=== PATIENT | female | born 1945 | race Caucasian/White ===

== ENCOUNTER 2020-03-24 01:26 | Day surgery (SDC) | payer OTHER, SELFPAY ==
[2020-03-08 15:27] VITALS: BMI 31.2
[2020-03-24 06:52] VITALS: BP 142/101; PULSE 61; RESP 18; TEMP 36.6; O2SAT 94
[2020-03-24] MEDS: LACTATED RINGERS 1,000 ML 150 ML IV CONT (07:08)
--- NOTE | 2020-03-24 07:08 | WPDANESEPPF ---
Anes - Initial Pre Proc Eval Procedure: Operation Date: 03/24/20 08:00 Proposed Procedures p Colonoscopy - Gregorio Nguyễn MD Date/Time: 03/24/20 07:08 Surgeon: Gregorio Nguyễn MD Pre Op Diagnosis: Positive Fecal Occult Patient Data Age: 74 Gender: F Height: 1.6 m Weight: 79.3 kg Last Vital Signs Temp 36.6 C 03/24/20 06:52 Pulse 61 03/24/20 06:52 Resp 18 03/24/20 06:52 BP 142/101 H 03/24/20 06:52 Pulse Ox 94 03/24/20 06:52 Allergies Allergy/AdvReac Type Severity Reaction Status Date / Time No Known Allergies Allergy Verified 03/24/20 06:51 Home Medications Medication Instructions Recorded Confirmed Type aspirin 81 mg tablet,delayed 81 mg PO DAILY 12/23/18 03/24/20 History release atorvastatin 20 mg tablet 40 mg PO HS 12/23/18 03/24/20 History blood sugar diagnostic #10 each 12/23/18 03/24/20 History calcium carbonate-vitamin D3 500 1 tablet PO DAILY 12/23/18 03/24/20 History mg(1,250 mg)-600 unit chewable tablet empagliflozin 25 mg tablet 25 mg PO DAILY 12/23/18 03/24/20 History ferrous sulfate 325 mg (65 mg 65 mg PO BID 12/23/18 03/24/20 History iron) tablet losartan 100 mg tablet 100 mg PO DAILY 12/23/18 03/24/20 History omeprazole 40 mg capsule,delayed 20 mg PO DAILY 12/23/18 03/24/20 History release vitamin B complex 1 tablet PO DAILY 12/23/18 03/24/20 History duloxetine 90 mg PO DAILY 03/08/20 03/24/20 History insulin glargine-lixisenatide 25 unit SUBCUT DAILY 03/08/20 03/24/20 History [Soliqua 100/33] metformin 500 mg PO BID 03/08/20 03/24/20 History metoprolol succinate 100 mg PO DAILY 03/08/20 03/24/20 History pregabalin [Lyrica] 50 mg PO BID 03/24/20 03/24/20 History Patient hx anesthesia problems: none Family hx anesthesia problems: none PMFSH Past Medical History Medical History Anxiety Breast cancer Coronary artery disease Depression GERD without esophagitis Glaucoma Hyperlipidemia Hypertension Rosacea Type 2 diabetes mellitus with diabetic nephropathy Family History Family History (Updated 07/03/16 @ 14:55 by DOCTOR UNKNOWN) Mother Diabetes mellitus Family history of cardiovascular disease Social History Social History Smoking packs per day: 1 Smoking cigarettes per day: 20.0 Years smoked: 10 Smoking pack-years: 10.00 Smoking status: Former smoker Tobacco type: cigarettes Alcohol intake: never Substance use type: does not use Living arrangements: with family Spiritual care concerns: No Anes - Eval Final PreProcedure Day of Procedure 03/24/20 07:08 Patient weight: obese Heart: regular rate and rhythm Lungs: clear to auscultation and normal air movement Airway: Mallampati scale class II Neurological: alert and oriented Last oral intake: >/= 8 hours ASA classification: III Emergent: no Anesthetic plan: proceed Anesthesia type and monitoring: general GIVS Informed Consent: The patient's anesthetic plan and its attendant risks and benefits were discussed with the patient/family/POA. Questions were solicited and answers provided to the satisfaction of the patient/family/POA.
[2020-03-24 07:14] LABS: Glucose Point of Care 141 (65-105)
--- NOTE | 2020-03-24 08:00 | PM.HPGS ---
History of Present Illness History of Present Illness Consent: Risks, benefits, and alternatives have been discussed and questions answered. Patient agrees to proceed with procedure. Chief complaint: Positive Fecal Occult Narrative: Kiki Ragsdale is a 74 year old female here for screening colonoscopy, last one 5 years ago. Review of Systems Constitutional: Constitutional: Denies headache(s) and Denies weakness Eyes: Eyes: Denies blurry vision ENT: Reports Normal hearing present, Denies headache(s) and Denies neck pain Cardiovascular: Cardiovascular: Denies chest pain and Denies dyspnea Respiratory: Respiratory: Denies dyspnea Gastrointestinal: Gastrointestinal: Reports no additional gastrointestinal complaints Genitourinary: Genitourinary: Denies dysuria Musculoskeletal: Musculoskeletal: Denies neck pain Integumentary/Breasts: Skin/Breast: Denies dry skin Neurologic: Reports Normal hearing present, Denies headache(s) and Denies weakness Psychiatric: Psychiatric: Denies anxiety Endocrine: Endocrine: Denies change in body appearance Hematologic/Lymphatic: Hematologic/Lymphatic: Denies easy bleeding Allergic/Immunologic: Allergic/Immunologic: Denies urticaria PMFSH Past Medical History Medical History (Updated 03/24/20 @ 08:01 by Gregorio Nguyễn MD) Anxiety Breast cancer Colon cancer screening Coronary artery disease Depression GERD without esophagitis Glaucoma Hyperlipidemia Hypertension Rosacea Type 2 diabetes mellitus with diabetic nephropathy Family History Family History (Updated 07/03/16 @ 14:55 by DOCTOR UNKNOWN) Mother Diabetes mellitus Family history of cardiovascular disease Social History Social History Smoking packs per day: 1 Smoking cigarettes per day: 20.0 Years smoked: 10 Smoking pack-years: 10.00 Smoking status: Former smoker Tobacco type: cigarettes Alcohol intake: never Substance use type: does not use Living arrangements: with family Spiritual care concerns: No Meds Home Medications and Allergies Home Medications Medication Instructions Recorded Confirmed Type aspirin 81 mg tablet,delayed 81 mg PO DAILY 12/23/18 03/24/20 History release atorvastatin 20 mg tablet 40 mg PO HS 12/23/18 03/24/20 History blood sugar diagnostic #10 each 12/23/18 03/24/20 History calcium carbonate-vitamin D3 500 1 tablet PO DAILY 12/23/18 03/24/20 History mg(1,250 mg)-600 unit chewable tablet empagliflozin 25 mg tablet 25 mg PO DAILY 12/23/18 03/24/20 History ferrous sulfate 325 mg (65 mg 65 mg PO BID 12/23/18 03/24/20 History iron) tablet losartan 100 mg tablet 100 mg PO DAILY 12/23/18 03/24/20 History omeprazole 40 mg capsule,delayed 20 mg PO DAILY 12/23/18 03/24/20 History release vitamin B complex 1 tablet PO DAILY 12/23/18 03/24/20 History duloxetine 90 mg PO DAILY 03/08/20 03/24/20 History insulin glargine-lixisenatide 25 unit SUBCUT DAILY 03/08/20 03/24/20 History [Soliqua 100/33] metformin 500 mg PO BID 03/08/20 03/24/20 History metoprolol succinate 100 mg PO DAILY 03/08/20 03/24/20 History pregabalin [Lyrica] 50 mg PO BID 03/24/20 03/24/20 History Allergies Allergy/AdvReac Type Severity Reaction Status Date / Time No Known Allergies Allergy Verified 03/24/20 06:51 Vital Signs Vital Signs - 24 hr 03/24/20 06:52 Temperature 97.8 F Pulse Rate 61 Respiratory Rate 18 Blood Pressure 142/101 H Pulse Oximetry 94 Exam Const: General: comfortable and no acute distress HENMT: General nose exam: Normal nares present Eyes: General: appearance normal, both eyes and all related structures Neck: Neck: no JVD Resp: Auscultation: clear to auscultation bilaterally Cardio: Rate: regular rate Rhythm: regular rhythm GI: Inspection: non-distended GI Palp: Yes Soft to palpation Skin: General skin exam: normal color Neuro: General: gait normal Speech: normal speech Extrem: General: normal to
[2020-03-24 08:22] VITALS: BP 87/31; PULSE 56; RESP 20; O2SAT 97
[2020-03-24 08:32] VITALS: BP 102/54; PULSE 58; RESP 22; O2SAT 97
[2020-03-24 08:42] VITALS: BP 121/43; PULSE 56; RESP 20; O2SAT 98
[2020-03-24 08:52] VITALS: BP 133/64; PULSE 58; RESP 18; O2SAT 99
== END 2020-03-24 09:15 | disposition home or self-care (01) ==
PROVIDERS: PCP Student in an Organized Health Care Education/Training Program; Visit Provider Internal Medicine Gastroenterology
PROC: 0DJD8ZZ Inspection of Lower Intestinal Tract, Via Natural or Artificial Opening Endoscopic (ICD-10-PCS; CPT 45378; principal; 2020-03-24 08:00)
DX: Z12.11 Encounter for screening for malignant neoplasm of colon (principal); R19.5 Other fecal abnormalities; I10 Essential (primary) hypertension; E78.5 Hyperlipidemia, unspecified; E11.21 Type 2 diabetes mellitus with diabetic nephropathy; F41.8 Other specified anxiety disorders; I25.10 Atherosclerotic heart disease of native coronary artery without angina pectoris; K21.9 Gastro-esophageal reflux disease without esophagitis; H40.9 Unspecified glaucoma; Z85.3 Personal history of malignant neoplasm of breast; Z79.4 Long term (current) use of insulin; Z79.84 Long term (current) use of oral hypoglycemic drugs; Z79.82 Long term (current) use of aspirin; Z87.891 Personal history of nicotine dependence; E66.9 Obesity, unspecified; Z68.31 Body mass index [BMI] 31.0-31.9, adult
CPT/HCPCS: G0121; 82948; J2704; J7120

== ENCOUNTER 2020-04-19 09:09 | Outpatient (CLI) | payer OTHER, MEDICARE, SELFPAY | END 2020-04-19 09:10 | disposition home or self-care (01) | LOC: ANHCOVIDVC 09:09 | PROVIDERS: PCP Student in an Organized Health Care Education/Training Program | DX: Z23 Encounter for immunization (principal) | CPT/HCPCS: 0001A; 91300 ==

== ENCOUNTER 2020-05-10 09:04 | Outpatient (CLI) | payer OTHER, MEDICARE, SELFPAY | END 2020-05-10 09:05 | disposition home or self-care (01) | LOC: ANHCOVIDVC 09:04 | PROVIDERS: PCP Student in an Organized Health Care Education/Training Program | DX: Z23 Encounter for immunization (principal) | CPT/HCPCS: 0002A; 91300 ==

== ENCOUNTER → 2021-11-09 14:06 | Outpatient (CLI) | payer OTHER, SELFPAY ==
--- NOTE | ~2021-11-09 | MM_ITS ---
EXAMINATION: MM screening jose luis BI w griselda HISTORY: Screening mammogram, history of left breast cancer TECHNIQUE: Craniocaudal and mediolateral oblique 3-D tomosynthesis images were obtained and synthetic 2-D images were generated. CAD analysis was submitted and interpreted. COMPARISON: 04/26/2020, 05/20/2018, 05/04/2017 BREAST PARENCHYMAL COMPOSITION: There are scattered areas of fibroglandular density. FINDINGS: There are stable lumpectomy changes of the left breast. There is no suspicious mass, calcif ication, or architectural distortion to suggest malignancy in either breast. There has been no suspic ious interval change. IMPRESSION: 1. No mammographic evidence of malignancy. 2. Recommend routine screening mammography in one year. BI-RADS Category 2: Benign finding(s). Reviewed, dictated and finalized at location A.
== END ==
PROVIDERS: PCP Student in an Organized Health Care Education/Training Program; Visit Provider Student in an Organized Health Care Education/Training Program
DX: Z12.31 Encounter for screening mammogram for malignant neoplasm of breast (principal)
CPT/HCPCS: 77063; 77067

== ENCOUNTER 2022-02-27 09:15 | Inpatient (IN) | payer OTHER, SELFPAY ==
[2022-02-27] VITALS (26 sets, daily range): BP systolic 142–185; BP diastolic 56–83; PULSE 77–109; RESP 13–22; TEMP 35.8–36.6; O2SAT 90–100; BMI 29.2; BMI 28.8
--- NOTE | ~2022-02-27 | US_ITS ---
EXAMINATION: US renal BI DATE: 02/28/2022 08:49 INDICATION: Acute renal failure TECHNIQUE: Multiple grayscale and Doppler ultrasound images of the kidneys were obtained. COMPARISON: None. FINDINGS: The right kidney measures 11.3 x 5.9 x 5.3 cm. The left kidney measures 7.3 x 3.8 x 2.8 cm. There is mild atrophy and cortical thinning of the left kidney. The kidneys demonstrate normal paren chymal echogenicity. There is no hydronephrosis. The bladder is normal. IMPRESSION: 1. Mild atrophy of the left kidney. Reviewed, dictated and finalized at location L. 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
--- NOTE | ~2022-02-27 | MR_ITS ---
EXAMINATION: MR lumbar spine wo/w con DATE: 02/28/2022 06:55 INDICATION: Low back pain. TECHNIQUE: Magnetic resonance imaging (MRI) of the lumbar spine was performed without and with 15 mL MultiHance intravenous contrast. COMPARISON: Lumbar spine MRI 04/10/2013, CT 02/27/2022 FINDINGS: There is 9 degrees levocurvature of lumbar spine. There is 3 mm retrolisthesis of L1 on L2 and L2 on L3. There is mild chronic anterior wedging of T10 and T11 vertebral bodies. There is mildly decreased disc height at L1-L2, severely decreased disc height at L2-L3 and L3-L4, moderately decrea sed disc height at L4-L5, and severely decreased disc height at L5-S1 with endplate remodeling. The d istal spinal cord signal intensity is normal. The conus medullaris is at L1-L2. There is moderate atr ophy of left kidney. The following disc levels are specifically discussed: L1-L2: The disc is bulging. There is severe bilateral facet joint osteoarthritis. There is mild bilat eral neural foraminal stenosis. There is mild central canal stenosis. L2-L3: The disc is bulging and has an annular fissure. There is severe bilateral facet joint osteoart hritis. There is moderate bilateral neural foraminal stenosis. There is mild central canal stenosis. L3-L4: The disc is bulging with superimposed right subarticular zone extrusion with 10 mm superior ex tension. There is severe bilateral facet joint osteoarthritis. There is severe right and moderate lef t neural foraminal stenosis. There is mild central canal stenosis. L4-L5: The disc is bulging with superimposed extrusions in central zone and right subarticular zone. The right subarticular zone extrusion demonstrates 14 mm inferior extension. There is moderate right and severe left facet joint osteoarthritis. There is moderate bilateral neural foraminal stenosis. Th ere is mild central canal stenosis. L5-S1: The disc is bulging with superimposed right central extrusion. There is severe bilateral facet joint osteoarthritis. There is moderate bilateral neural foraminal stenosis. There is mild central c anal stenosis. IMPRESSION: 1. Severe lumbar spondylosis. 2. Moderate atrophy of left kidney. Reviewed, dictated and finalized at location A. 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
--- NOTE | ~2022-02-27 | CT_ITS ---
EXAMINATION: CT lumbar spine wo con DATE: 02/27/2022 10:44 INDICATION: Right-sided low back pain. TECHNIQUE: Computed tomography (CT) of the lumbar spine was performed without intravenous contrast. A utomated exposure control and iterative reconstruction technique were employed. The dose-length produ ct was 890.72 mGy-cm. COMPARISON: None FINDINGS: There is 11 degrees levoscoliosis of lumbar spine. There is 3 mm retrolisthesis of L1 on L2 and L2 on L3. Vertebral body heights are normal. There is mildly decreased disc height at L1-L2, sev erely decreased disc height at L2-L3 and L3-L4, moderately decreased disc height at L4-L5, and severe ly decreased disc height at L5-S1 with endplate remodeling. There is moderate atrophy of left kidney. The following disc levels are specifically discussed: L1-L2: The disc is bulging. There is mild bilateral facet joint osteoarthritis. There is mild bilater al neural foraminal stenosis. There is mild central canal stenosis. L2-L3: The disc is bulging. There is moderate right and severe left facet joint osteoarthritis. There is moderate bilateral neural foraminal stenosis. There is mild central canal stenosis. L3-L4: The disc is bulging. There is severe bilateral facet joint osteoarthritis. There is moderate b ilateral neural foraminal stenosis. There is mild central canal stenosis. L4-L5: The disc is bulging. There is moderate right and severe left facet joint osteoarthritis. There is moderate bilateral neural foraminal stenosis. There is mild central canal stenosis. L5-S1: The disc is bulging. There is severe bilateral facet joint osteoarthritis. There is moderate b ilateral neural foraminal stenosis. There is mild central canal stenosis. IMPRESSION: 1. Severe lumbar spondylosis. 2. Lumbar levoscoliosis. 3. Moderate atrophy of left kidney. Reviewed, dictated and finalized at location A. R SERVICES COORDINATOR
--- NOTE | 2022-02-27 09:26 | PC.NURSE ---
pt educated on importance of not thrashing around in wheelchair because she could cause herself to fall. pt verbalized understanding.
--- NOTE | 2022-02-27 10:42 | ED.EXTPRO ---
HPI - Extremity Problem General Chief complaint: Extremity Problem,Nontraumatic <KARI Cifuentes Last Filed: 02/27/22 16:01> Stated complaint: sciatica <KARI Cifuentes Last Filed: 02/27/22 16:01> Time Seen by Provider: 02/27/22 09:30 <KARI Cifuentes Last Filed: 02/27/22 16:01> Source: patient <KARI Cifuentes Last Filed: 02/27/22 16:01> Mode of arrival: ambulatory <KARI Cifuentes Last Filed: 02/27/22 16:01> Limitations: no limitations <KARI Cifuentes Last Filed: 02/27/22 16:01> History of Present Illness HPI Narrative: Patient is a 76-year-old female who presents the ED with report of right lower back and lower extremity pain. Patient reports a previous history of sciatica 10 years ago, which feels similar. Pain begins in right lower back and extends through buttock and down right lower extremity to her foot. Pain began around 4 weeks ago and has been persistent. Patient has been attempting stretches at home and using ibuprofen and Tylenol without relief. Last took ibuprofen 800mg at 730 this morning. Patient was seen at an emergency room in [place] 4 days ago where she reports she had an MRI of her lumbar spine. She states she was told she needed emergency surgery, but she is unsure why. Patient declined and returned home. Patient did report a couple episodes of bowel and bladder incontinence 1 week ago, but denies any since. Denies numbness or saddle anesthesia. She states her RLE does feel weaker due to the pain. She is able to ambulate but has worsening pain w/ this. Denies abdominal pain. Denies fever, nausea, vomiting. <KARI Cifuentes Last Filed: 02/27/22 16:01> Related Data Home medications: Home Medications Medication Instructions Recorded Confirmed aspirin 81 mg tablet,delayed 81 mg PO DAILY 12/23/18 12/07/21 release (Adult Low Dose Aspirin) atorvastatin 20 mg tablet 40 mg PO HS 12/23/18 12/07/21 blood sugar diagnostic (Contour #10 ea 12/23/18 12/07/21 Test Strips) calcium carbonate-vitamin D3 500 1 tablet PO DAILY 12/23/18 12/07/21 mg(1,250 mg)-600 unit chewable tablet ferrous sulfate 325 mg (65 mg 65 mg PO BID 12/23/18 12/07/21 iron) tablet losartan 100 mg tablet 100 mg PO DAILY 12/23/18 12/07/21 omeprazole 40 mg capsule,delayed 20 mg PO DAILY 12/23/18 12/07/21 release metformin 1,000 mg tablet 500 mg PO BID 03/08/20 12/07/21 metoprolol succinate 50 mg 100 mg PO DAILY 03/08/20 12/07/21 tablet,extended release 24 hr pregabalin 50 mg capsule (Lyrica) 50 mg PO BID 03/24/20 12/07/21 amlodipine 5 mg tablet 5 mg PO DAILY 12/07/21 12/07/21 bimatoprost 0.01 % eye drops 1 drp EACH EYE 12/07/21 12/07/21 (Shabana) chlorthalidone 25 mg tablet 25 mg PO DAILY 12/07/21 12/07/21 insulin glargine U-300 conc 300 50 unit subcut DAILY 12/07/21 12/07/21 unit/mL (3 mL) subcutaneous pen (Toujeo Max U-300 SoloStar) venlafaxine 150 mg 150 mg PO DAILY 12/07/21 12/07/21 capsule,extended release 24 hr <Antonieta Cannon PA-C - Last Filed: 02/27/22 16:01> Allergies/Adverse reactions: Allergies Allergy/AdvReac Type Severity Reaction Status Date / Time No Known Allergies Allergy Verified 02/27/22 11:06 <Antonieta Cannon PA-C - Last Filed: 02/27/22 16:01> Review of Systems Review of Systems: CONSTITUTIONAL: Denies fever, chills, or sweats. CARDIOVASCULAR: Denies chest pain. RESPIRATORY: Denies dyspnea. GASTROINTESTINAL: See HPI. Denies abdominal pain, nausea, vomiting, or diarrhea. GENITOURINARY: See HPI. Denies dysuria or hematuria. SKIN: Denies rash or itching. MUSCULOSKELETAL: See HPI. NEUROLOGIC: Denies headache, saddle anesthesia, numbness, or weakness. <Antonieta Cannon PA-C - Last Filed: 02/27/22 16:01> All systems reviewed & are unremarkable except as noted in HPI and below <Antonieta Cannon PA-C - Last Filed: 02/27/22 16:01
[2022-02-27] MEDS: MORPHINE SULFATE (*CRX) 4 MG/ML INJ IV PUSH (11:51)
[2022-02-27] MEDS: methylPREDNISolone SOD SUCC 125 MG VIAL IV PUSH (11:51)
[2022-02-27] MEDS: ONDANSETRON INJ 4 MG/2 ML VIAL IV PUSH (11:51)
[2022-02-27] MEDS: diazePAM INJ (*CRX) 10 MG/2 ML SYRINGE 2 MG IV PUSH (12:52)
--- NOTE | 2022-02-27 13:55 | PC.NURSE ---
Patient resting at this time. Family at bedside. No needs at this time
[2022-02-27 15:35] LABS: Basophils Absolute Auto 0.1 K/mm3 (0.0-0.1); Basophils Percent Auto 0.3 % (0.2-1.2); Eosinophils Absolute Auto 0.1 K/mm3 (0-0.3); Eosinophils Percent Auto 0.3 % (0-4.4); Hematocrit 42.7 % (37.0-47.0); Hemoglobin 13.6 g/dL (12.0-15.0); Immature Granulocyte Absolute 0.08 K/mm3 (0.00-0.031); Immature Granulocyte Percent A 0.5 % (0-0.5); Lymphocytes Absolute Auto 0.96 K/mm3 (0.9-3.2); Lymphocytes Percent Auto 6.5 % (18.3-44.2); Mean Corpuscular HGB Conc 31.9 g/dl (32-36); Mean Corpuscular Hemoglobin 31.3 pg (26-34); Mean Corpuscular Volume 98.2 fl (80-100); Mean Platelet Volume 11.8 fl (7.4-10.4); Monocytes Absolute Auto 0.2 K/mm3 (0.1-0.6); Monocytes Percent Auto 1.1 % (2.6-8.5); Neutrophils Absolute Auto 13.5 K/mm3 (1.3-6.7); Neutrophils Percent Auto 91.3 % (45.5-73.1); Platelet Count Result 205 k/mm3 (150-375); Red Blood Count 4.35 M/mm3 (4.2-5.4); Red Cell Distribution Width 14.2 % (11.5-14.5); White Blood Count 14.8 K/mm3 (4.5-10.0)
[2022-02-27 15:46] LABS: Alanine Aminotransferase 24 U/L (6-35); Alkaline Phosphatase 93 U/L (38-126); Anion Gap 10 mmol/L (8-16); Aspartate Amino Transferase 26 U/L (14-36); Bilirubin,Total 0.7 mg/dL (0.2-1.3); Blood Urea Nitrogen 52 mg/dL (7-17); Calcium 8.5 mg/dL (8.4-10.2); Carbon Dioxide 26 mmol/L (22-30); Chloride 98 mmol/L (98-107); Estimated CRCL calculation 24 ml/min; Estimated Glomerular Filt Rate 28; Glucose 286 mg/dL (65-110); Potassium 4.3 mmol/L (3.4-5.0); Sodium 134 mmol/L (137-145)
--- NOTE | 2022-02-27 15:56 | PC.NURSE ---
Patient placed on 2L of O2 due to oxygen being 87-88% while sleeping. Provider made aware
[2022-02-27 16:11] LABS: Influenza A QL RT-PCR Negative (Negative); Influenza B QL RT-PCR Negative (Negative); SARS-CoV-2 RNA PCR Negative
--- NOTE | 2022-02-27 17:19 | PC.NURSE ---
Per verbal order from IJEOMA Carroll, we are to start medrol dose pac tomorrow morning since patient already got solu-medrol this morning
[2022-02-27] MEDS: SODIUM CHLORIDE 0.9% IV 1,000 ML 999 ML IV CONT (17:50)
--- NOTE | 2022-02-27 18:46 | ADMGEN ---
This patient, Kiki Ragsdale, was admitted to Virtual Bed 3rd Floor-2. Patient/family oriented to hospital policies and general routines including ID bracelet, bed and alarms, visiting hours, pain management, procedures, bathroom and other care routines, personal items, smoking policy, room service/diet, and visiting hours. Information on how to activate the Rapid Response Team has been discussed. Patient/Family are encouraged to report perceived risks to care and to ask questions if they do not understand what they are told or what they should do.
--- NOTE | 2022-02-27 19:48 | PC.NURSE ---
This RN admitted this pt near end of shift change. Admission questions done and med rec completed. Pt had multiple bags, with lots of medications, including some loose meds that matched the pills inside the lyrica 75mg bottle. Loose meds put back into lyrica 75mg bottle. Narcotic count done with Astrid Carson. Report given to night RN. ENVELOPE PRESS OPERATOR made aware of pt admitting to marijuana usage and having delayed responses and constricted pupils. Pt fully responsive and not in respiratory distress.
[2022-02-27] MEDS: HYDROcodone/acetaminophen (*CRX) 7.5-325 MG TABLET 1 TAB PO (20:49)
[2022-02-27 21:18] LABS: Glucose Point of Care 319 mg/dl (65-105)
--- NOTE | 2022-02-27 21:22 | WPDNEUROSGCN ---
Assessment and Plan Assessment and plan (1) Lumbar back pain with radiculopathy affecting right lower extremity: Code(s): M54.16 - Radiculopathy, lumbar region Status: Acute Plan Kiki is a 76-year-old female with a likely right L4, L5 or S1 radiculopathy. We will perform an MRI to evaluate for some sort of neurocompressive pathology, likely a herniated disc which may be corrected surgically if necessary. I recommend 10 of Decadron followed by 4 mg p.o. q.6 hours unless there is some contraindication. Once we have seen the results of the MRI we will make further recommendations. She has no acute neurologic deficit at this point but is essentially nonambulatory. Review of Systems Review of Systems: Patient denies shortness of breath, cough, fever, chills, nausea, vomiting, weight loss, weight gain, chest pain, dysuria. She has back and leg pain as above. She has subjective weakness. Her review of systems is otherwise negative it except as noted elsewhere on 12 systems. [facility] Past Medical History Medical History Anxiety Breast cancer Colon cancer screening Coronary artery disease Depression GERD without esophagitis Glaucoma Hyperlipidemia Hypertension Rosacea Type 2 diabetes mellitus with diabetic nephropathy Surgical History Surgical History No pertinent past surgical history Family History Family History Mother Diabetes mellitus Family history of cardiovascular disease Social History Social History Smoking packs per day: 1 Smoking cigarettes per day: 20.0 Years smoked: 5 Smoking pack-years: 5.00 Smoking status: Former smoker Tobacco type: cigarettes Alcohol intake: current Drinks per week: 0 Substance use type: marijuana Last use: 02/25/22 Lack of Transportation: No Lack of Food: Never True Current Housing: I Have Housing Concerned About Future Housing: No Difficulty Paying Gas/Electric Bills: YES Difficulty Paying for Meds: No Currently Unemployed: No Education: Decline to Answer Difficulty w/ Childcare or Family Care: No Spiritual care concerns: No Meds Home Medications and Allergies Home Medications Medication Instructions Recorded Confirmed Type aspirin 81 mg tablet,delayed 81 mg PO DAILY 12/23/18 02/27/22 History release (Adult Low Dose Aspirin) atorvastatin 20 mg tablet 40 mg PO HS 12/23/18 02/27/22 History blood sugar diagnostic (Contour #10 ea 12/23/18 02/27/22 History Test Strips) calcium carbonate-vitamin D3 500 1 tablet PO DAILY 12/23/18 02/27/22 History mg(1,250 mg)-600 unit chewable tablet losartan 100 mg tablet 100 mg PO DAILY 12/23/18 02/27/22 History omeprazole 40 mg capsule,delayed 20 mg PO DAILY 12/23/18 02/27/22 History release metformin 1,000 mg tablet 500 mg PO BID 03/08/20 02/27/22 History metoprolol succinate 50 mg 100 mg PO DAILY 03/08/20 02/27/22 History tablet,extended release 24 hr pregabalin 50 mg capsule (Lyrica) 75 mg PO BID 03/24/20 02/27/22 History amlodipine 5 mg tablet 5 mg PO DAILY 12/07/21 02/27/22 History bimatoprost 0.01 % eye drops 1 drp EACH EYE HS 12/07/21 02/27/22 History (Vargasigan) chlorthalidone 25 mg tablet 25 mg PO DAILY 12/07/21 02/27/22 History venlafaxine 150 mg 150 mg PO DAILY 12/07/21 02/27/22 History capsule,extended release 24 hr pen needle, diabetic 32 gauge x #100 ea 01/02/22 02/27/22 Rx 5/32 (BD Aida 2nd Gen Pen Needle) empagliflozin 25 mg tablet 25 mg PO DAILY #90 tabs 02/02/22 02/27/22 Rx (Jardiance) cyclobenzaprine 5 mg tablet 5 mg PO TID PRN Muscle Spasm 02/27/22 02/27/22 History insulin glargine U-300 conc 300 50 unit subcut DAILY 02/27/22 02/27/22 History unit/mL (3 mL) subcutaneous pen (Toujeo Max U-300 SoloStar) Al
--- NOTE | 2022-02-27 21:41 | PM.IMHP ---
H&P: HPI History of Present Illness Date/Time: 02/27/22 21:41 Chief Complaint: Back pain Narrative: this is a 76-year-old female patient who has chronic right lower back pain and lower extremity pain. 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 She stated this feels similar to what she had 10 years ago. The pain started approximately 4 weeks ago and has been persistent. The patient has attempted stretches at home without any success. Patient has been using Tylenol and ibuprofen without any relief. The patient was seen in the emergency room and floor to 4 days ago and supposedly had a MRI of her lumbar spine. According to the patient that she was supposed to have emergency surgery but declined a came home instead. She she was having episodes of incontinence of bowel and bladder week ago but has not had any of that since then. The patient is having difficulty ambulating due to the discomfort. Lumbar spine CT was read as the following1. Severe lumbar spondylosis. 2. Lumbar levoscoliosis. 3. Moderate atrophy of left kidney. the patient was given morphine, Zofran, IV Tylenol, Valium, and Solu-Medrol. Neurosurgeon has been consulted. The patient is moving all extremities without difficulty. Her creatinine is 1.8. No recent labs for comparison. Last creatinine was in 2019 at 1.28. Blood sugars were 286 and 319. A1c on 12/07/2021 was 9.1. Influenza A/B and COVID negative. The patient is being admitted to observation Review of Systems Review of Systems: see HPI All systems reviewed & are unremarkable except as noted in HPI and below Constitutional: Constitutional: Reports as per HPI and Reports no additional constitutional complaints Eyes: Eyes: Reports as per HPI and Reports no additional eye complaints ENT: Reports system reviewed and no additional complaints, except as documented and Reports Normal hearing present Cardiovascular: Cardiovascular: Reports no additional cardiovascular complaints Respiratory: Respiratory: Reports no additional respiratory complaints and Reports no additional respiratory complaints Gastrointestinal: Gastrointestinal: Reports as per HPI and Reports no additional gastrointestinal complaints Musculoskeletal: Musculoskeletal: Reports no additional musculoskeletal complaints Integumentary/Breasts: Skin/Breast: Reports system reviewed and no additional complaints, except as docu and Reports as per HPI Neurologic: Reports system reviewed and no additional complaints, except as documented, Reports as per HPI and Reports Normal hearing present Psychiatric: Psychiatric: Reports no additional psychiatric complaints and Reports as per HPI Endocrine: Endocrine: Reports no additional endocrine complaints Hematologic/Lymphatic: Hematologic/Lymphatic: Reports no additional hematologic/lymphatic complaints Allergic/Immunologic: Allergic/Immunologic: Reports no additional allergic/immunologic complaints [facility] Past Medical History Medical History Anxiety Breast cancer Colon cancer screening Coronary artery disease Depression GERD without esophagitis Glaucoma Hyperlipidemia Hypertension Rosacea Type 2 diabetes mellitus with diabetic nephropathy Surgical History Surgical History (Updated 02/28/22 @ 00:55 by Carly Lunsford NP) H/O arthroscopic knee surgery H/O lumpectomy H/O tubal ligation History of cataract extraction History of total knee arthroplasty Family History Family History (Updated 02/28/22 @ 00:56 by Carly Lunsford NP) Mother Diabetes mellitus Family history of cardiovascular disease Depression Father Suicide Sibling COPD (chronic obstructive pulmonary disease) Family history of cardiovascular disease Heart disease Depression COPD exacerbation Social History Social History (Updated 02/28/22 @ 00:59 by Carly Lunsford NP) Social History: the patient is and has 2 children. Sh
[2022-02-28] VITALS (7 sets, daily range): BP systolic 132–192; BP diastolic 56–77; PULSE 59–88; RESP 16; TEMP 35.7–36.6; O2SAT 92–96
[2022-02-28 02:52] LABS: Add Urine Microscopic? YES; Appearance Urine Clear (Clear); Bilirubin Urine Negative (Negative); Blood Urine Negative (Negative); Color Urine Yellow (Yellow); Glucose Urine UA 3+ mg/dL (Negative); Ketones Urine Negative (Negative); Leukocyte Esterase Ur Negative LEU/UL (Negative); Nitrate Urine Negative (Negative); Protein Urine Negative (Negative); Specific Grav Ur 1.015 (1.001-1.035); Urobilinogen Urine 0.2 mg/dL (<2.0); pH Urine 5.5 (5.0-9.0)
[2022-02-28 03:00] LABS: Bacteria Urine Trace /hpf; Mucus Urine Heavy /lpf; RBC Urine 0-2 /hpf (0-2); Squamous Epithelial Cell Urine Rare /hpf (Few)
[2022-02-28] MEDS: HYDROcodone/acetaminophen (*CRX) 7.5-325 MG TABLET 1 TAB PO ×3 (05:23→19:30)
[2022-02-28] MEDS: methylPREDNISolone (MEDROL) DOSEPACK 4 MG TABLETS PO ×4 (05:35→19:37)
[2022-02-28 06:19] LABS: Basophils Percent Auto 0.2 % (0.2-1.2); Hematocrit 38.1 % (37.0-47.0); Hemoglobin 12.6 g/dL (12.0-15.0); Immature Granulocyte Percent A 0.5 % (0-0.5); Lymphocytes Absolute Auto 1.46 K/mm3 (0.9-3.2); Lymphocytes Percent Auto 7.8 % (18.3-44.2); Mean Corpuscular HGB Conc 33.1 g/dl (32-36); Mean Corpuscular Volume 93.8 fl (80-100); Mean Platelet Volume 11.7 fl (7.4-10.4); Monocytes Absolute Auto 0.8 K/mm3 (0.1-0.6); Monocytes Percent Auto 4.4 % (2.6-8.5); Neutrophils Absolute Auto 16.4 K/mm3 (1.3-6.7); Neutrophils Percent Auto 87.1 % (45.5-73.1); Platelet Count Result 231 k/mm3 (150-375); Red Blood Count 4.06 M/mm3 (4.2-5.4); White Blood Count 18.8 K/mm3 (4.5-10.0)
[2022-02-28] MEDS: METOPROLOL SUCCINATE EXT REL 50 MG TABCR 100 MG PO (06:21)
[2022-02-28] MEDS: amLODIPine BESYLATE 5 MG TABLET PO (06:21)
--- NOTE | 2022-02-28 06:25 | PC.NURSE ---
Spoke with Dr. Beltran this morning r/t patient's elevated BP's with current BP 192/[address] Beltran says to give her scheduled morning meds so that her MRI is not delayed. No PRN's ordered at this time
[2022-02-28 06:31] LABS: Alanine Aminotransferase 23 U/L (6-35); Albumin Level 4.1 g/dL (3.5-5.1); Alkaline Phosphatase 91 U/L (38-126); Anion Gap 10 mmol/L (8-16); Aspartate Amino Transferase 19 U/L (14-36); Bilirubin,Total 0.6 mg/dL (0.2-1.3); Blood Urea Nitrogen 47 mg/dL (7-17); Calcium 8.5 mg/dL (8.4-10.2); Carbon Dioxide 23 mmol/L (22-30); Chloride 101 mmol/L (98-107); Estimated CRCL calculation 25 ml/min; Estimated Glomerular Filt Rate 29; Glucose 270 mg/dL (65-110); Lactic Acid Reflex 0.9 mmol/L (0.7-2.0); Magnesium 2.4 mg/dL (1.6-2.3); Potassium 4.5 mmol/L (3.4-5.0); Sodium 134 mmol/L (137-145)
[2022-02-28 07:11] LABS: Thyroid Stimulating Hormone Reflex 0.169 uIU/mL (0.465-4.68)
[2022-02-28 07:32] LABS: Hemoglobin A1C 9.4 % (<5.7)
[2022-02-28 07:39] LABS: Glucose Point of Care 267 mg/dl (65-105)
[2022-02-28 08:12] LABS: Free T4 Free Thyroxine Reflex 1.34 ng/dL (0.78-2.19)
[2022-02-28] MEDS: INSULIN ASPART (*BKC) 100 UNITS/ML SUB-Q ×3 (08:16→17:09)
[2022-02-28] MEDS: ASPIRIN 81 MG ENTERIC TABLET PO (08:18)
[2022-02-28] MEDS: PREGABALIN (*CRX) 75 MG CAPSULE PO ×2 (08:18→19:30)
[2022-02-28] MEDS: VENLAFAXINE HCL XR 75 MG CAP.ER.24H 150 MG PO (08:18)
[2022-02-28] MEDS: FAMOTIDINE 20 MG TABLET PO ×2 (08:19→19:30)
[2022-02-28] MEDS: EMPAGLIFLOZIN 25 MG TABLET PO (08:19)
[2022-02-28 09:07] LABS: Total Triiodothyronine (T3) 0.68 NG/ML (0.97-1.69)
[2022-02-28 11:59] LABS: Glucose Point of Care 255 mg/dl (65-105)
[2022-02-28] MEDS: CYCLOBENZAPRINE HCL 5 MG TABLET PO ×2 (13:33→19:30)
--- NOTE | 2022-02-28 16:34 | PM.IMPN ---
Progress Note: A&P Assessment and Plan (1) Lumbar back pain with radiculopathy affecting right lower extremity: Code(s): M54.16 - Radiculopathy, lumbar region Status: Acute Assessment and Plan: -PT and OT had consult greatly be appreciated. The patient stated that she was trying stretches at home which did not help her much at all. -the patient does have degenerative disc disease. - Neurosurgery has been consulted. Recommended MRI. - the patient has been started on a Medrol Dosepak. -continue with muscle relaxers. Continue with Guttenberg. -the patient is moving all extremities. She is continent of bowel bladder. - continue with Lyrica 02/28/2022 interval history: patient with severe low back pain seen by spinal surgeon started the patient on dexamethasone and patient is on are Lyrica, however patient pain is not controlled, further evaluate the surgeon has ordered MRI of the spine which showed severe lumbar spondylosis, surgeon will review MRI results and further recommendation to follow, is also found to have moderate atrophy of left kidney, renal ultrasound showed mild atrophy of the left kidney. will continue to monitor and further recommendation to follow (2) Acute renal insufficiency: Code(s): N28.9 - Disorder of kidney and ureter, unspecified Status: Acute Assessment and Plan: Creatinine is listed as 1.8. Without any recent labs for comparison. 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 She may bring them from home. (5) Anxiety: Code(s): F41.9 - Anxiety disorder, unspecified Status: Acute Assessment and Plan: -The patient was given Valium earlier. Continue with Effexor (6) Depression: Code(s): F32.9 - Major depressive disorder, single episode, unspecified Status: Acute Assessment and Plan: -continue with Effexor (7) GERD without esophagitis: Code(s): K21.9 - Gastro-esophageal reflux disease without esophagitis Status: Acute Assessment and Plan: -Pepcid (8) Hyperlipidemia: Code(s): E78.5 - Hyperlipidemia, unspecified Status: Acute Assessment and Plan: -continue with atorvastatin (9) Essential (primary) hypertension: Code(s): I10 - Essential (primary) hypertension Status: Acute Assessment and Plan: -continue with amlodipine -continue with metoprolol Subjective Date/time seen: 02/28/22 16:34 ? Back pain HPI Narrative: ?this is a 76-year-old female patient who has chronic right lower back pain and lower extremity pain.? 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 She stated? this feels similar to what she had 10 years ago.? The pain started approximately 4 weeks ago and has been persistent.? The patient has attempted stretches at home without any success.? Patient has been using Tylenol and ibuprofen without any relief.? The patient was seen in the emergency room and floor to 4 days ago and supposedly had a MRI of her lumbar spine.? According to the patient that she was supposed to have emergency surgery but declined a came home instead.? She she was having episodes of incontinence of bowel and bladder week ago but has not had any of that since then.? The patient is having difficulty ambulating due to the dis
[2022-02-28 17:08] LABS: Glucose Point of Care 324 mg/dl (65-105)
--- NOTE | 2022-02-28 17:37 | WPDNEUROSGPN ---
Progress Note: A&P Assessment and Plan (1) Lumbar disc herniation: Code(s): M51.26 - Other intervertebral disc displacement, lumbar region Status: Acute (2) Lumbosacral disc herniation: Code(s): M51.27 - Other intervertebral disc displacement, lumbosacral region Status: Acute Plan Kiki likely has a radiculopathy related to the disc herniations, the ones in the lower lumbar spine being the most likely to cause the distribution of discomfort that she is currently having. We discussed a right L4-5 and L5-S1 microdiskectomy and I described to her that operation, its risks, potential benefits, the operative and postoperative course in detail and answered all her questions personally. We also discussed the alternative of her being released from the hospital and following up as an outpatient with a local pain management physician for injections or any other treatments that may be helpful in an effort to avoid surgical intervention. She prefers this approach. She may be discharged from the hospital with a modest amount of pain medication and perhaps a Medrol Dosepak to follow-up in my office after we arranged for her to see a pain management doctor and undergo injections at the probable causative levels. Subjective Date/time seen: 02/28/22 17:37 Kiki is doing somewhat better today. She has been making transfers and ambulating independently. She does require pain medication. She does not report any new symptoms in either lower extremity. She is not having any bowel or bladder difficulty or specific muscle group weakness. Exam Narrative: Strength appears to be good and symmetrical in the bilateral lower extremities to direct confrontation in the sitting position. Sensation is intact to light touch throughout the lower extremities. Her back is nontender. Objective Data Vital Signs Vital Signs: Vital Signs - 24 hr 02/27/22 18:52 02/27/22 21:00 02/27/22 22:00 Temperature 96.4 F L 97.2 F L Pulse Rate 77 86 86 Respiratory Rate 20 14 14 Blood Pressure 178/77 H 172/72 H Pulse Oximetry 97 90 90 Oxygen Delivery Room Air 02/28/22 06:21 02/28/22 06:00 02/28/22 08:35 Temperature 96.3 F L Pulse Rate 88 88 Respiratory Rate 16 Blood Pressure 192/77 H Pulse Oximetry 96 Oxygen Delivery Room Air 02/28/22 09:01 02/28/22 14:00 02/28/22 06:25 Temperature 97.9 F Pulse Rate 68 88 Respiratory Rate 16 Blood Pressure 132/56 L Pulse Oximetry 96 Oxygen Delivery Room Air Intake/Output Intake/Output: Intake & Output 02/25/22 02/26/22 02/27/22 02/28/22 23:59 23:59 23:59 23:59 Intake Total 100 910 Output Total 600 Balance 100 310 Meds/Results Medications: Active Medications Generic Name Dose Route Start Last Admin Trade Name Freq PRN Reason Stop Dose Admin Hydrocodone Bitart/Acetaminophen 1 tab 02/27/22 15:27 02/28/22 12:01 Hydrocodone/Acetaminophen (*Crx) 7.5-325 Mg Tablet PO 1 tab Q4H PRN Administration Pain Amlodipine Besylate 5 mg 02/28/22 09:00 02/28/22 06:21 Amlodipine Besylate 5 Mg Tablet PO 5 mg DAILY DAVE Administration Aspirin 81 mg 02/28/22 09:00 02/28/22 08:18 Aspirin 81 Mg Enteric Tablet PO 81 mg DAILY DAVE Administration Atorvastatin Calcium 40 mg 02/28/22 21:00 Atorvastatin 40 Mg Tablet PO HS DAVE Cyclobenzaprine HCl 5 mg 02/28/22 00:48 02/28/22 13:33 Cyclobenzaprine Hcl 5 Mg Tablet PO 5 mg TID PRN Administration Muscle Spasm Dextrose 12.5 gm 02/28/22 00:48 Dextrose 50% 25 Gm/50 Ml Syringe IV PUSH PRN PRN Hypoglycemia Protocol Empagliflozin 25 mg 02/28/22 09:00 02/28/22 08:19 Empagliflozin 25 Mg Tablet PO 25 mg DAILY DAVE Administration Famotidine 20 mg 02/28/22 09:00 02/28/22 08:19 Famotidine 20 Mg Tablet PO 20 mg Q12HR DAVE Administration Glucagon 1 mg 02/28/22 00:48 Glucagon For Inj 1 Mg Vial IM PRN PRN Hy
[2022-02-28] MEDS: ATORVASTATIN 40 MG TABLET PO (19:30)
--- NOTE | 2022-02-28 20:39 | PC.NURSE ---
bs 412 reported to [facility] awaiting orders
[2022-02-28] MEDS: INSULIN ASPART (*BKC) 100 UNITS/ML 6 UNITS SUB-Q (21:01)
[2022-02-28 22:42] LABS: Glucose Point of Care 412 mg/dl (65-105)
[2022-02-28 22:45] LABS: Glucose Point of Care 365 mg/dl (65-105)
[2022-03-01] MEDS: methylPREDNISolone (MEDROL) DOSEPACK 4 MG TABLETS PO ×4 (05:33→20:36)
[2022-03-01 06:00] VITALS: BP 160/81; PULSE 51; RESP 18; TEMP 35.9; O2SAT 91
[2022-03-01 06:42] LABS: Anion Gap 9 mmol/L (8-16); Blood Urea Nitrogen 49 mg/dL (7-17); Calcium 8.4 mg/dL (8.4-10.2); Carbon Dioxide 26 mmol/L (22-30); Chloride 100 mmol/L (98-107); Estimated CRCL calculation 31 ml/min; Estimated Glomerular Filt Rate 37; Glucose 309 mg/dL (65-110); Magnesium 2.5 mg/dL (1.6-2.3); Sodium 135 mmol/L (137-145)
[2022-03-01 07:59] VITALS: PULSE 59
[2022-03-01] MEDS: METOPROLOL SUCCINATE EXT REL 50 MG TABCR 100 MG PO (07:59)
[2022-03-01] MEDS: EMPAGLIFLOZIN 25 MG TABLET PO (07:59)
[2022-03-01] MEDS: PREGABALIN (*CRX) 75 MG CAPSULE PO ×2 (08:00→20:41)
[2022-03-01] MEDS: amLODIPine BESYLATE 5 MG TABLET PO (08:00)
[2022-03-01] MEDS: FAMOTIDINE 20 MG TABLET PO ×2 (08:00→20:39)
[2022-03-01] MEDS: VENLAFAXINE HCL XR 75 MG CAP.ER.24H 150 MG PO (08:00)
[2022-03-01] MEDS: ASPIRIN 81 MG ENTERIC TABLET PO (08:00)
[2022-03-01] MEDS: INSULIN ASPART (*BKC) 100 UNITS/ML SUB-Q ×2 (08:05→17:01)
[2022-03-01 08:07] LABS: Glucose Point of Care 320 mg/dl (65-105)
[2022-03-01] MEDS: CYCLOBENZAPRINE HCL 5 MG TABLET PO (09:41)
--- NOTE | 2022-03-01 11:25 | PM.DS ---
DS: Summary Time Spent with Patient Time attestation: Total time spent providing and/or coordinating discharge services: DS: Data Data Completed and Pending Labs on day of discharge: Labs from last 24 hours 03/01/22 03/01/22 02/28/22 08:05 05:48 22:43 Sodium 135 L Potassium 4.0 Chloride 100 Carbon Dioxide 26 Anion Gap 9 BUN 49 H Creatinine 1.40 H Estim Creat Clear Calc 31 Estimated GFR 37 L Glucose 309 H POC Capillary Glucose 320 H 365 H Calcium 8.4 Magnesium 2.5 H 02/28/22 02/28/22 02/28/22 20:31 17:03 11:55 Sodium Potassium Chloride Carbon Dioxide Anion Gap BUN Creatinine Estim Creat Clear Calc Estimated GFR Glucose POC Capillary Glucose 412 H 324 H 255 H Calcium Magnesium Discharge Plan Discharge Attending physician on discharge: Jessica Clay Consulting providers: Yadiel Story ; Antonieta Cannon Discharging Clinician: Jessica Clay Patient Disposition: Home, Self-Care Activity: as tolerated Diet: heart healthy Discharge Instructions: Patient to follow up with Dr. Story as scheduled and follow up with her primary care provider as soon as possible, patient is instructed if any symptoms worsen to go to nearest ER. Patient Instructions: Antibiotic Form, Lumbar Radiculopathy (GEN) Stand Alone Forms: General Discharge Information Follow-up/Referrals: Yessenia,DO Kamari [Primary Care Provider] - Yadiel Story MD [Physician] - Discharge Medications: New hydrocodone-acetaminophen 7.5-325 mg Tablet 1 tablet PO Q4H PRN (Reason: Pain) Qty: 20 0RF famotidine 20 mg Tablet 20 mg PO Q12HR Qty: 60 0RF Continued aspirin [Adult Low Dose Aspirin] 81 mg tablet,delayed release (DR/EC) 81 mg PO DAILY atorvastatin 20 mg tablet 40 mg PO HS losartan 100 mg tablet 100 mg PO DAILY omeprazole 40 mg capsule,delayed release(DR/EC) 20 mg PO DAILY calcium carbonate-vitamin D3 500 mg(1,250mg) -600 unit tablet,chewable 1 tablet PO DAILY venlafaxine 150 mg capsule,extended release 24hr 150 mg PO DAILY chlorthalidone 25 mg tablet 25 mg PO DAILY amlodipine 5 mg tablet 5 mg PO DAILY Lumigan 0.01 % drops 1 drp EACH EYE HS cyclobenzaprine 5 mg tablet 5 mg PO TID PRN (Reason: Muscle Spasm) Toujeo Max U-300 SoloStar 300 unit/mL (3 mL) insulin pen 50 unit SUBCUT DAILY metoprolol succinate 50 mg tablet extended release 24 hr 100 mg PO DAILY pregabalin [Lyrica] 50 mg capsule 75 mg PO BID Jardiance 25 mg tablet 25 mg PO DAILY Qty: 90 0RF No Action (DME) Contour Test Strips Strip See Rx Instructions .ROUTE .MEDSUPPLY Qty: 10 Rx Instructions: As directed metformin 1,000 mg tablet 500 mg PO BID (DME) pen needle, diabetic [BD Aida 2nd Gen Pen Needle] 32 gauge x 5/32 needle See Rx Instructions .Route Qty: 100 1RF Rx Instructions: Use with insulin once daily Date of admission: 02/27/22 15:28 Primary Care Provider: YesseniaKamari Admitting Provider: Mark Anthony Mancini Attending physician on admission: Mark Anthony Mancini Condition: Stable
[2022-03-01 11:37] LABS: Glucose Point of Care 494 mg/dl (65-105)
--- NOTE | 2022-03-01 12:07 | PC.NURSE ---
Called Dr. Clay about pt 494 blood sugar at lunch time. He stated we cannot discharge pt with this blood sugar. stated give 20 lantus and 10 novolog and recheck in 2 hours after.
[2022-03-01] MEDS: INSULIN ASPART (*BKC) 100 UNITS/ML 10 UNITS SUB-Q (12:11)
[2022-03-01] MEDS: INSULIN GLARGINE (*BKC) 100 UNITS/ML 20 UNITS SUB-Q (12:12)
[2022-03-01 14:00] VITALS: BP 148/60; PULSE 60; RESP 20; TEMP 36.7; O2SAT 98
[2022-03-01 14:08] LABS: Glucose Point of Care 453 mg/dl (65-105)
[2022-03-01] MEDS: HYDROcodone/acetaminophen (*CRX) 7.5-325 MG TABLET 1 TAB PO (14:21)
[2022-03-01] MEDS: INSULIN GLARGINE (*BKC) 100 UNITS/ML 30 UNITS SUB-Q (15:38)
--- NOTE | 2022-03-01 16:06 | PC.NURSE ---
talked to Dr. padilla about recheck of bs that we checked at 2. bs of 453. told me to give 30 more units of lantus to continue with her home regimen. We will check her blood sugar again before dinner.
[2022-03-01 16:49] LABS: Glucose Point of Care 330 mg/dl (65-105)
[2022-03-01] MEDS: ATORVASTATIN 40 MG TABLET PO (20:39)
[2022-03-01 22:00] VITALS: BP 176/67; PULSE 57; RESP 16; TEMP 35.8; O2SAT 94
[2022-03-01 22:00] LABS: Glucose Point of Care 436 mg/dl (65-105)
[2022-03-02 06:00] VITALS: BP 147/71; PULSE 64; RESP 16; TEMP 35.5; O2SAT 94
[2022-03-02] MEDS: methylPREDNISolone (MEDROL) DOSEPACK 4 MG TABLETS PO ×2 (06:07→11:57)
[2022-03-02 06:27] LABS: Hemoglobin 13.5 g/dL (12.0-15.0); Mean Corpuscular HGB Conc 32.9 g/dl (32-36); Mean Corpuscular Hemoglobin 31.5 pg (26-34); Mean Corpuscular Volume 95.6 fl (80-100); Mean Platelet Volume 11.5 fl (7.4-10.4); Platelet Count Result 201 k/mm3 (150-375); Red Blood Count 4.29 M/mm3 (4.2-5.4); Red Cell Distribution Width 13.5 % (11.5-14.5)
[2022-03-02] MEDS: HYDROcodone/acetaminophen (*CRX) 7.5-325 MG TABLET 1 TAB PO ×2 (06:42→10:57)
[2022-03-02 06:43] LABS: Anion Gap 6 mmol/L (8-16); Blood Urea Nitrogen 47 mg/dL (7-17); Calcium 8.5 mg/dL (8.4-10.2); Carbon Dioxide 32 mmol/L (22-30); Chloride 97 mmol/L (98-107); Estimated CRCL calculation 29 ml/min; Estimated Glomerular Filt Rate 34; Glucose 228 mg/dL (65-110); Magnesium 2.6 mg/dL (1.6-2.3); Potassium 3.5 mmol/L (3.4-5.0); Sodium 135 mmol/L (137-145)
[2022-03-02 08:04] LABS: Glucose Point of Care 201 mg/dl (65-105)
[2022-03-02 08:15] VITALS: PULSE 76
[2022-03-02] MEDS: amLODIPine BESYLATE 5 MG TABLET PO (08:15)
[2022-03-02] MEDS: PREGABALIN (*CRX) 75 MG CAPSULE PO (08:15)
[2022-03-02] MEDS: VENLAFAXINE HCL XR 75 MG CAP.ER.24H 150 MG PO (08:15)
[2022-03-02] MEDS: METOPROLOL SUCCINATE EXT REL 50 MG TABCR 100 MG PO (08:15)
[2022-03-02] MEDS: FAMOTIDINE 20 MG TABLET PO (08:15)
[2022-03-02] MEDS: EMPAGLIFLOZIN 25 MG TABLET PO (08:15)
[2022-03-02] MEDS: ASPIRIN 81 MG ENTERIC TABLET PO (08:15)
[2022-03-02] MEDS: INSULIN ASPART (*BKC) 100 UNITS/ML SUB-Q ×2 (08:16→11:54)
[2022-03-02] MEDS: INSULIN GLARGINE (*BKC) 100 UNITS/ML 50 UNITS SUB-Q (08:16)
--- NOTE | 2022-03-02 09:26 | PM.IMPN ---
Progress Note: A&P Assessment and Plan (1) Lumbar back pain with radiculopathy affecting right lower extremity: Code(s): M54.16 - Radiculopathy, lumbar region Status: Acute Assessment and Plan: patient with severe low back pain seen by spinal surgeon started the patient on dexamethasone and patient is on are Lyrica, however patient pain is not controlled, further evaluate the surgeon has ordered MRI of the spine which showed? severe lumbar spondylosis,? surgeon will review MRI results and further recommendation to follow, is also found to have moderate atrophy of left kidney,? renal ultrasound showed mild atrophy of the left kidney. will continue to monitor and further recommendation to follow patient be seen by her spine surgeon and further recommendation to follow. (2) Acute renal insufficiency: Code(s): N28.9 - Disorder of kidney and ureter, unspecified Status: Acute Assessment and Plan: found to have moderate atrophy of left kidney,? renal ultrasound showed mild atrophy of the left kidney. 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: Qualifiers: Diabetes mellitus news clerk insulin use: without news clerk use Qualified Code(s): E11.21 - Type 2 diabetes mellitus with diabetic nephropathy Code(s): E11.21 - Type 2 diabetes mellitus with diabetic nephropathy Status: Acute Assessment and Plan: will continue home regimen and monitor (4) Glaucoma: Code(s): H40.9 - Unspecified glaucoma Status: Acute (5) Anxiety: Code(s): F41.9 - Anxiety disorder, unspecified Status: Acute (6) Depression: Code(s): F32.9 - Major depressive disorder, single episode, unspecified Status: Acute (7) GERD without esophagitis: Code(s): K21.9 - Gastro-esophageal reflux disease without esophagitis Status: Acute (8) Hyperlipidemia: Code(s): E78.5 - Hyperlipidemia, unspecified Status: Acute (9) Essential (primary) hypertension: Code(s): I10 - Essential (primary) hypertension Status: Acute Subjective Date/time seen: 03/01/22 09:26 patient with severe low back pain seen by spinal surgeon started the patient on dexamethasone and patient is on are Lyrica, however patient pain is not controlled, further evaluate the surgeon has ordered MRI of the spine which showed? severe lumbar spondylosis,? surgeon will review MRI results and further recommendation to follow, is also found to have moderate atrophy of left kidney,? renal ultrasound showed mild atrophy of the left kidney. will continue to monitor and further recommendation to follow patient be seen by her spine surgeon and further recommendation to follow. Review of Systems Review of Systems: All systems reviewed & are unremarkable except as noted in HPI and below Exam Narrative: patient is sitting in the chair in p ain Patient is com fortable, NAD HEEN T: eyes are clear and none icteric L UNGS: respiratory effort ABD:? not d istended Lower ext remities: no edema SKIN: nonjaundice d Neuro: grossly i ntact. Objective Data Vital Signs Vital Signs: Vital Signs - 24 hr 03/01/22 14:00 03/01/22 22:00 03/02/22 06:00 Temperature 98.0 F 96.4 F L 96 F L Pulse Rate 60 57 L 64 Respiratory Rate 20 16 16 Blood Pressure 148/60 H 176/67 H 147/71 H Pulse Oximetry 98 94 94 03/02/22 08:15 Temperature Pulse Rate 76 Respiratory Rate Blood Pressure Pulse Oximetry Intake/Output Intake/Output: Intake & Output 02/27/22 02/28/22 03/01/22 03/02/22 23:59 23:59 23:59 23:59 Intake Total 100 1450 2190 350 Output Total 1100 Balance 758 272 4154 350 Meds/Results Medications: Active Medications Generic Name Dose Route Start Last Admin Trade Name Freq PRN Reason Stop Dose Admin Hydrocodone Bitart/Acetaminophen 1 tab 02/27/22 15:27 03/02/22 06:42
--- NOTE | 2022-03-02 09:27 | PM.DS ---
DS: Admitting Diagnosis Discharge Date 03/02/2022 Admitting Diagnosis back pain DS: Discharge Diagnosis Discharge Diagnosis (1) Lumbar back pain with radiculopathy affecting right lower extremity: Code(s): M54.16 - Radiculopathy, lumbar region Status: Acute Assessment and Plan: patient with severe low back pain seen by spinal surgeon started the patient on dexamethasone and patient is on are Lyrica, however patient pain is not controlled, further evaluate the surgeon has ordered MRI of the spine which showed? severe lumbar spondylosis,? surgeon will review MRI results and further recommendation to follow, is also found to have moderate atrophy of left kidney,? renal ultrasound showed mild atrophy of the left kidney. will continue to monitor and further recommendation to follow patient be seen by her spine surgeon and further recommendation to follow. (2) Acute renal insufficiency: Code(s): N28.9 - Disorder of kidney and ureter, unspecified Status: Acute Assessment and Plan: found to have moderate atrophy of left kidney,? renal ultrasound showed mild atrophy of the left kidney. 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: Qualifiers: Diabetes mellitus jail insulin use: without jail use Qualified Code(s): E11.21 - Type 2 diabetes mellitus with diabetic nephropathy Code(s): E11.21 - Type 2 diabetes mellitus with diabetic nephropathy Status: Acute Assessment and Plan: will continue home regimen and monitor (4) Glaucoma: Code(s): H40.9 - Unspecified glaucoma Status: Acute (5) Anxiety: Code(s): F41.9 - Anxiety disorder, unspecified Status: Acute (6) Depression: Code(s): F32.9 - Major depressive disorder, single episode, unspecified Status: Acute (7) GERD without esophagitis: Code(s): K21.9 - Gastro-esophageal reflux disease without esophagitis Status: Acute (8) Hyperlipidemia: Code(s): E78.5 - Hyperlipidemia, unspecified Status: Acute (9) Essential (primary) hypertension: Code(s): I10 - Essential (primary) hypertension Status: Acute DS: Summary Hospital Course Reason for hospitalization: ?Back pain Narrative: ?this is a 76-year-old female patient who has chronic right lower back pain and lower extremity pain.? 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 She stated? this feels similar to what she had 10 years ago.? The pain started approximately 4 weeks ago and has been persistent.? The patient has attempted stretches at home without any success.? Patient has been using Tylenol and ibuprofen without any relief.? The patient was seen in the emergency room and floor to 4 days ago and supposedly had a MRI of her lumbar spine.? According to the patient that she was supposed to have emergency surgery but declined a came home instead.? She she was having episodes of incontinence of bowel and bladder week ago but has not had any of that since then.? The patient is having difficulty ambulating due to the discomfort.? Lumbar spine CT was read as the following1. Severe lumbar spondylosis. 2. Lumbar levoscoliosis. 3. Moderate atrophy of left kidney. ?the patient was given morphine, Zofran, IV? Tylenol, Valium, and Solu-Medrol.? Neurosurgeon has been consulted.? The patient is moving all extremities without difficulty.? Her creatinine is 1.8.? No recent labs for comparison.? Last creatinine? was in 2019? at 1.28.? Blood sugars were 286 and 319.? A1c on 12/07/2021 was 9.1.? Influenza A/B and COVID negative.? The patient is being admitted to observation Hospital Course: patient with severe low back pain seen by spinal surgeon started the patient on dexamethasone and patient is on are Lyrica, however patient pain is not controlled, further evaluate the surgeon has ordered MRI of the spine which showed? severe lumbar
[2022-03-02] MEDS: POTASSIUM CHLORIDE 20 MEQ TABLET 40 MEQ PO (10:57)
[2022-03-02] MEDS: CYCLOBENZAPRINE HCL 5 MG TABLET PO (10:57)
[2022-03-02 11:22] LABS: Glucose Point of Care 347 mg/dl (65-105)
== END 2022-03-02 13:10 | disposition home or self-care (01) | DRG 552 ==
LOC: ANHED 15:38 → ANH3MEDSUR 17:37
PROVIDERS: Nurse Practitioner; Physician Assistant; Admitting Provider Internal Medicine; Emergency Provider Emergency Medicine; PCP Student in an Organized Health Care Education/Training Program; Visit Provider Family Medicine
DX: M51.17 Intervertebral disc disorders with radiculopathy, lumbosacral region (principal); E11.21 Type 2 diabetes mellitus with diabetic nephropathy; N28.9 Disorder of kidney and ureter, unspecified; Z20.822 Contact with and (suspected) exposure to COVID-19; Z23 Encounter for immunization; F41.9 Anxiety disorder, unspecified; F32.A Depression, unspecified; I25.10 Atherosclerotic heart disease of native coronary artery without angina pectoris; K21.9 Gastro-esophageal reflux disease without esophagitis; E78.5 Hyperlipidemia, unspecified; L71.9 Rosacea, unspecified; H40.9 Unspecified glaucoma; Z85.3 Personal history of malignant neoplasm of breast; Z87.891 Personal history of nicotine dependence
CPT/HCPCS: 36415; 72131; 72158; 76775; 80048; 80053; 81001; 82948; 83036; 83605; 83735; 84439; 84443; 84480; 85025; 85027; 87636; 90471; 90694; 96365; 96375; 97116; 97161; 97165; 99285; A9270; A9577; G0008; G0378; J0131; J1815; J2270; J2405; J2930; J3360; J7030

== ENCOUNTER 2022-05-29 10:15 | Outpatient (CLI) | payer OTHER, SELFPAY ==
--- NOTE | 2022-05-29 10:50 | ECG_ITS ---
Measurements Intervals [place] Rate: 63 P: 106 WA: 167 QRS: -11 QRSD: 82 T: 14 QT: 419 QTc: 432 Interpretive Statements SINUS RHYTHM BASELINE ARTIFACT VOLTAGE CRITERIA FOR LVH BORDERLINE ECG NO PREVIOUS ECG AVAILABLE FOR COMPARISON Electronically Signed On 05-29-2022 17:02:08 CDT by Mao Marina M.D.
[2022-05-29 12:07] LABS: Hematocrit 37.5 % (37.0-47.0); Hemoglobin 11.7 g/dL (12.0-15.0)
[2022-05-29 12:24] LABS: Anion Gap 8 mmol/L (8-16); Blood Urea Nitrogen 40 mg/dL (7-17); Calcium 9.1 mg/dL (8.4-10.2); Carbon Dioxide 27 mmol/L (22-30); Chloride 102 mmol/L (98-107); Estimated Glomerular Filt Rate 29; Glucose 253 mg/dL (65-110); Potassium 4.2 mmol/L (3.4-5.0); Sodium 137 mmol/L (137-145)
== END 2022-05-29 10:16 | disposition home or self-care (01) ==
PROVIDERS: Anesthesiology; PCP Student in an Organized Health Care Education/Training Program; Visit Provider Neurological Surgery
DX: M51.26 Other intervertebral disc displacement, lumbar region (principal); E11.9 Type 2 diabetes mellitus without complications; D64.9 Anemia, unspecified; Z01.818 Encounter for other preprocedural examination; R94.31 Abnormal electrocardiogram [ECG] [EKG]
CPT/HCPCS: 36415; 80048; 85014; 85018; 86850; 86900; 86901; 93005

== ENCOUNTER 2022-06-06 01:09 | Day surgery (SDC) | payer OTHER, SELFPAY ==
[2022-05-29 10:27] VITALS: BMI 30.2
--- NOTE | 2022-05-29 10:36 | PC.NURSE ---
Report to the Outpatient Waiting Room, entrance under the green pavilion located off [facility], at time _0600_ on date _06/06/22_. Planned Procedure Time: _0730_. Time changes happen often and if your time is changed the preop area will call you the afternoon before. - You and your visitor will be asked to self-screen and do not enter if you have any COVID symptoms. - A mask is optional within the hospital at this time. Patients may have clear liquids (water, carbonated beverages, clear teas, apple juice) until 3 hours prior to surgery (0430 AM) with a maximum of 20 ounces. - No food from midnight until time of surgery Take the following medications with a SIP of water the morning of surgery: _AMLODIPINE, METOPROLOL, PREGABALIN, VENLAFAXINE, EYE DROPS_ DO NOT STOP ANY OF YOUR OTHER PRESCRIPTION MEDICATIONS PRIOR TO SURGERY ?EXCEPT THE FOLLOWING Medications to discontinue per - _ASPIRIN, Date to take last dose 05/26/22_ Please no make-up, nail georgian, hairspray, perfume, deodorant, or body powder the day of surgery. No jewelry (including any body piercings) or valuables the day of surgery, leave them at home. Please take a shower or bath the night before, or the morning of, surgery with an antibacterial soap. Wear comfortable, loose fitting clothing. - Jewelry must be removed prior to entering the operating room. Rings and piercings that are not removed may be cut off. - The hospital will not accept responsibility for valuables. - Please leave all valuables, including medications, at home the day of surgery. If you are going home after surgery, a licensed escort vehicle driver must drive you home. - NO public transportation without another adult if you receive anesthesia. - We recommend that an adult stay with you for 24 hours following discharge. - We also recommend that you do not drive, make important decision, drink alcoholic beverages, or take any drugs that were not prescribed by your health care provider for at least 24 hours after your discharge time. Follow any additional instructions given to you from your surgeon. If you or anyone in your household have experienced Covid symptoms in the past week, please notify your surgeon or the nurse liaison at the phone number below for possible testing. Telephone instructions given to _PATIENT_and asked if any additional questions and then verbalized understanding. Patient advised to call surgeon office or pre surgery nurse liaison [phone] if any additional questions.
[2022-06-06] VITALS (13 sets, daily range): BP systolic 95–157; BP diastolic 36–64; PULSE 53–68; RESP 14–16; TEMP 36.6–36.8; O2SAT 87–100
--- NOTE | ~2022-06-06 | XR_ITS ---
EXAMINATION: XR fluoroscopy no charge DATE: 06/06/2022 09:54 INDICATION: Right L3-S1 lumbar microdiscectomy TECHNIQUE: 2 lateral fluoroscopic images of the lower lumbar spine were obtained during procedure per formed by Dr. Luis A tierney. Radiologist was not present for the imaging or procedure. The amount of fluo roscopy time used during this procedure was 0.1 minutes. COMPARISON: CT dated 02/28/2022 FINDINGS: Severe spondylosis in the visualized mid to lower lumbar spine. Surgical instrumentation projects ove r the posterior aspect of the lower lumbar spine. Markers for a lap sponge projects over the lower mark mbar spine on the initial image. IMPRESSION: 1. Fluoroscopy utilized during neurosurgical procedure at the posterior lower lumbar spine. See proce dure note for further detail. Reviewed, dictated and finalized at location A. IMPRESSION: 1. Fluoroscopy utilized during neurosurgical procedure at the posterior lower l umbar spine. See procedure note for further detail.
--- NOTE | 2022-06-06 06:27 | WPDANESEPPF ---
Anes - Initial Pre Proc Eval Procedure: Operation Date: 06/06/22 07:30 Proposed Procedures p Right L3-4, L4-5, L5-S1 Microdiscectomy - Yadiel Story MD Date/Time: 06/06/22 06:27 Surgeon: Yadiel Story MD Pre Op Diagnosis: right herniated nucleus pulposus Patient Data Age: 76 Gender: F Height: 1.6 m Weight: 77.5 kg Allergies Allergy/AdvReac Type Severity Reaction Status Date / Time No Known Allergies Allergy Verified 05/29/22 10:22 Home Medications Medication Instructions Recorded Confirmed Type aspirin 81 mg tablet,delayed 81 mg PO DAILY 12/23/18 05/29/22 History release (Adult Low Dose Aspirin) atorvastatin 20 mg tablet 40 mg PO HS 12/23/18 05/29/22 History blood sugar diagnostic (Contour #10 ea 12/23/18 05/29/22 History Test Strips) calcium carbonate-vitamin D3 500 1 tablet PO DAILY 12/23/18 05/29/22 History mg(1,250 mg)-600 unit chewable tablet losartan 100 mg tablet 100 mg PO DAILY 12/23/18 05/29/22 History omeprazole 40 mg capsule,delayed 20 mg PO DAILY 12/23/18 05/29/22 History release metformin 1,000 mg tablet 500 mg PO BID 03/08/20 05/29/22 History metoprolol succinate 50 mg 100 mg PO DAILY 03/08/20 05/29/22 History tablet,extended release 24 hr pregabalin 50 mg capsule (Lyrica) 75 mg PO BID 03/24/20 05/29/22 History amlodipine 5 mg tablet 5 mg PO DAILY 12/07/21 05/29/22 History bimatoprost 0.01 % eye drops 1 drp EACH EYE HS 12/07/21 05/29/22 History (Lumigan) chlorthalidone 25 mg tablet 25 mg PO DAILY 12/07/21 05/29/22 History venlafaxine 150 mg 150 mg PO DAILY 12/07/21 05/29/22 History capsule,extended release 24 hr pen needle, diabetic 32 gauge x #100 ea 01/02/22 05/29/22 Rx 5/32 (BD Aida 2nd Gen Pen Needle) empagliflozin 25 mg tablet 25 mg PO DAILY #90 tabs 02/02/22 05/29/22 Rx (Jardiance) ferrous sulfate 325 mg (65 mg 325 mg PO DAILY 05/29/22 05/29/22 History iron) tablet (iron) glucagon 1 mg/0.2 mL subcutaneous 1 mg subcut ONCE PRN LOW BLOOD 05/29/22 05/29/22 History auto-injector (Gvoke HypoPen SUGAR 2-Pack) insulin aspart See Rx Instructions .Route .COMPLEX 05/29/22 05/29/22 History (niacinamide)(U-100) 100 unit/mL(3 mL) subcutaneous pen (Fiasp FlexTouch U-100 Insulin) insulin glargine U-300 conc 300 40 unit subcut DAILY 05/29/22 05/29/22 History unit/mL (3 mL) subcutaneous pen (Toujeo Max U-300 SoloStar) Patient hx anesthesia problems: none Family hx anesthesia problems: none Results Review: All pre-operative results and documents have been reviewed as part of the pre-operative evaluation. 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
[2022-06-06] MEDS: LACTATED RINGERS 1,000 ML 30 ML IV CONT ×2 (06:47→10:08)
--- NOTE | 2022-06-06 07:40 | PM.IMHP ---
H&P: HPI History of Present Illness Date/Time: 06/06/22 07:40 Chief Complaint: Back and leg pain Narrative: Kiki is a 76-year-old female with back and leg pain related to herniated disc L3-4, L4-5 and L5-S1 presents for decompression by way of hemilaminectomy. She has not changed appreciably since we last saw her. She does not have specific muscle group weakness or dermatomal numbness. She is not having bowel or bladder difficulty. Review of Systems Review of Systems: Patient denies shortness of breath, cough, fever, chills, nausea, vomiting, weight loss, weight gain, chest pain, dysuria. She has back and leg pain as above. Review of systems is otherwise negative on 12 systems except as noted elsewhere. 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 She occasionally uses marijuana. She is a former smoker. Patient is retired. Code status full code Smoking packs per day: 1 Smoking cigarettes per day: 20.0 Years smoked: 3 Smoking pack-years: 3.00 Smoking status: Former smoker Tobacco type: cigarettes Second hand tobacco smoke exposure: No Alcohol intake: never Alcohol use details: socially Substance use: never Substance use type: does not use Last use: 02/25/22 Lack of Transportation: No Lack of Food: Never True Current Housing: I Have Housing Concerned About Future Housing: No Difficulty Paying Gas/Electric Bills: YES Difficulty Paying for Meds: No Currently Unemployed: No Education: Decline to Answer Difficulty w/ Childcare or Family Care: No Living arrangements: with family Spiritual care concerns: No Meds Home Medications and Allergies Home Medications Medication Instructions Recorded Confirmed Type aspirin 81 mg tablet,delayed 81 mg PO DAILY 12/23/18 06/06/22 History release (Adult Low Dose Aspirin) atorvastatin 20 mg tablet 40 mg PO HS 12/23/18 06/06/22 History blood sugar diagnostic (Contour #10 ea 12/23/18 05/29/22 History Test Strips) calcium carbonate-vitamin D3 500 1 tablet PO DAILY 12/23/18 06/06/22 History mg(1,250 mg)-600 unit chewable tablet losartan 100 mg tablet 100 mg PO DAILY 12/23/18 06/06/22 History omeprazole 40 mg capsule,delayed 20 mg PO DAILY 12/23/18 06/06/22 History release metformin 1,000 mg tablet 500 mg PO BID 03/08/20 06/06/22 History metoprolol succinate 50 mg 100 mg PO DAILY 03/08/20 06/06/22 History tablet,extended release 24 hr pregabalin 50 mg capsule (Lyrica) 7
--- NOTE | 2022-06-06 07:42 | WPDHPUPDATE1 ---
History and Physical Update Update Date/Time: 06/06/22 07:42 History and Physical has been reviewed, including an updated exam of the patient. There are NO changes in the patient's condition. Risks, benefits, and alternatives have been discussed and questions answered. Patient agrees to proceed with procedure.
[2022-06-06 07:47] LABS: Glucose Point of Care 153 mg/dl (65-105)
[2022-06-06] MEDS: ceFAZolin 2 GM/D5W 50 ML 2 GM/50 ML BAG IVPB (07:48)
[2022-06-06] MEDS: LIDO 1%/EPINEPHRINE 1:100,000 50 ML VIAL 10 ML INFILTRATE (08:33)
[2022-06-06 10:15] LABS: Glucose Point of Care 164 mg/dl (65-105)
--- NOTE | 2022-06-06 10:15 | W.PM.PROC2 ---
Procedure Note - Detailed Date of Procedure 06/06/22 Pre-op Diagnosis right herniated nucleus pulposus Post-op Diagnosis Same Procedure Performed Right L3-4, L4-5 and L5-S1 microscopic lumbar diskectomy Surgeon Yadiel Story MD Voice Over Announcer Janice Anesthesia General Description of Procedure The patient was brought to the operating room in the supine position, was sedated, intubated and placed under general anesthesia in routine fashion. She was then turned into the prone position on Jared frame. The area of operation on her back was examined, marked for incision, prepped and draped in routine sterile fashion. Incision was marked over the L3 through 5 spinous processes in the midline. This area was injected with 0.5% lidocaine [id number] epinephrine. Intravenous given prior to incision. Incision was made with a 10 blade scalpel down to the lumbodorsal fascia. A subperiosteal dissection of the muscle soft tissue away from spinous process and lamina at L 3-5 was performed with a subperiosteal elevator and Bovie cautery a verifying x-rays obtained to verify the level of operation. At the L3-4 and 5 levels a Midas Ryan drill was used to perform a hemilaminectomy and medial facetectomy. Under microscopy the yellow ligament was lifted removed piecemeal using Kerrison punches. At each level, the thecal sac was retracted medially exposing subligamentous disc herniation below. The ligament at each level was entered using 11 blade scalpel. An Zee curette, curved curette, Yepez rongeur were used to push free and removed fragments of herniated disc from beneath the nerve. This was done until a Favian could be placed in the lateral epidural space to confirm lack of compression. At the L3-4 level a bony foraminotomy was performed using a Midas Ryan drill, Kerrison punches and curved curettes until a May instrument could be placed into the foramen to confirm lack of compression. The wound was then copiously irrigated with bacitracin irrigation all bleeding stopped with bipolar and Bovie cautery and Gelfoam thrombin powder. The wound was then closed in layered fashion with 2-0 Vicryl interrupted sutures in the lumbodorsal fascia and Jenna's layer. 3-0 Vicryl buried interrupted sutures were placed in the dermis the skin was closed with a running 4-0 Monocryl subcuticular stitch and dressed with Dermabond. The patient was allowed to wake up in the operating room and was taken to the recovery room in stable condition. There were no immediate complications of this operation. All counts were reported correct in the case. Blood loss was 50 cc. The patient was neurologically at her baseline postoperatively. Estimated Blood Loss -50.0 IV Fluids 1,500 Complications None Condition Stable Disposition PACU [facility] Billing Surgery - Charge Forward: Surgery Billing
== END 2022-06-06 13:35 | disposition home or self-care (01) ==
PROVIDERS: PCP Student in an Organized Health Care Education/Training Program; Visit Provider Neurological Surgery
PROC: (CPT 63030; principal; 2022-06-06 07:30)
DX: M51.26 Other intervertebral disc displacement, lumbar region (principal); M51.27 Other intervertebral disc displacement, lumbosacral region; I10 Essential (primary) hypertension; E78.5 Hyperlipidemia, unspecified; E11.21 Type 2 diabetes mellitus with diabetic nephropathy; E11.42 Type 2 diabetes mellitus with diabetic polyneuropathy; I25.10 Atherosclerotic heart disease of native coronary artery without angina pectoris; D64.9 Anemia, unspecified; F41.9 Anxiety disorder, unspecified; F32.A Depression, unspecified; K21.9 Gastro-esophageal reflux disease without esophagitis; H40.9 Unspecified glaucoma; G89.29 Other chronic pain; Z85.3 Personal history of malignant neoplasm of breast; Z79.84 Long term (current) use of oral hypoglycemic drugs; Z79.82 Long term (current) use of aspirin; Z79.4 Long term (current) use of insulin; Z95.5 Presence of coronary angioplasty implant and graft; Z87.891 Personal history of nicotine dependence; E66.9 Obesity, unspecified; Z68.29 Body mass index [BMI] 29.0-29.9, adult
CPT/HCPCS: 63030; 63035 ×2; 36415; 80048; 82948; 85014; 85018; 86850; 86900; 86901; 93005; 99199; A9270; J0690; J1100; J1170; J2370; J2405; J2704; J2710; J3010; J7120

== ENCOUNTER 2022-12-07 16:02 | Observation (INO) | payer OTHER, SELFPAY ==
[2022-12-07] VITALS (40 sets, daily range): BP systolic 141–231; BP diastolic 71–112; PULSE 80–102; RESP 11–25; TEMP 36.4–36.6; O2SAT 92–99; BMI 29.8
--- NOTE | ~2022-12-07 | CT_ITS ---
EXAMINATION: CT brain wo con DATE: 12/07/2022 16:24 INDICATION: Aphasia TECHNIQUE: Computed tomography (CT) of the head was performed without intravenous contrast. The mA wa s adjusted according to patient size. Iterative reconstruction technique was employed. Exam dose: 60 5.33 mGy-cm total exam DLP. COMPARISON: None FINDINGS: There are bilateral carotid siphon internal carotid artery calcifications. There is nonspe cific diminished attenuation of the cerebral white matter, likely due to chronic small vessel ischemi c changes. There is subacute or chronic lacunar infarct of the right thalamus. There are chronic lacu griselda infarcts of the right basal ganglia. No intracranial mass lesion or hemorrhage or recent cerebrovascular accident is noted otherwise. No midline shift or mass effect effect. No subdural or epidural hematoma is detected. No fracture or bone destruction of the cranial vault. Included paranasal sinuses and mastoid air cells are normally developed and aerated. IMPRESSION: Cerebral atherosclerosis and chronic small vessel ischemic changes of cerebral white mat ter Subacute or chronic right thalamic lacunar infarct Chronic right basal ganglia lacunar infarcts Reviewed, dictated and finalized at Location [facility]. Reviewed, dictated and finalized at location L. IMPRESSION: Cerebral atherosclerosis and chronic small vessel ischemic changes of cerebral white matter Subacute or chronic right thalamic lacunar infarct Chronic right basal ganglia lacunar infarcts
--- NOTE | ~2022-12-07 | MR_ITS ---
EXAMINATION: MR brain/brain stem wo/w con DATE: 12/08/2022 10:29 INDICATION: Altered mental status TECHNIQUE: Magnetic resonance imaging (MRI) of the brain and brainstem was performed without and with 14 mL Multihance intravenous contrast. Sequences included sagittal and axial T1-weighted SE, axial d iffusion-weighted FS SE, axial 3D SWAN, axial T2-weighted FLAIR, and axial T2-weighted FSE. Postcontr ast axial and coronal T1-weighted SE was obtained. Apparent diffusion coefficient (ADC) maps were cre ated. COMPARISON: Head CT dated 12/07/2022 FINDINGS: There are no areas of restricted diffusion to suggest acute infarction. Small old lacunar infarct at the head of the right caudate nucleus. No intracranial hemorrhage or abnormal intracranial mass lesio n. There are scattered areas of nonspecific increased T2-weighted signal intensity in the cerebral wh ite matter, predominantly involving the deep and periventricular white matter which is within normal limits for age. There are no intraparenchymal signal abnormalities seen on the other pulse sequences. The ventricles are symmetric and normal in size. There are no abnormal extra-axial fluid collections . Flow voids are seen in the cerebral arteries on the T2-weighted sequences consistent with their exp ected patency. Changes of bilateral intraocular lens replacement. Mild mucosal thickening the bilater al ethmoid sinuses. There are no areas of abnormal enhancement on the post contrast images. IMPRESSION: 1. No acute intracranial process or abnormally enhancing brain lesions. 2. Small old lacunar infarct at the right caudate nucleus. 3. Moderate scattered periventricular white matter T2 hyperintensity consistent with chronic small ve ssel ischemic disease. Reviewed, dictated and finalized at location A. IMPRESSION: 1. No acute intracranial process or abnormally enhancing brain lesions. 2. Small old lacunar infarct at the right caudate nucleus. 3. Moderate scattered periventricular white matter T2 hyperintensity consistent with chronic small vessel ischemic disease.
--- NOTE | 2022-12-07 16:05 | ECG_ITS ---
Measurements Intervals [place] Rate: 91 P: 34 IN: 126 QRS: -20 QRSD: 81 T: 30 QT: 377 QTc: 464 Interpretive Statements SINUS RHYTHM BASELINE ARTIFACT VOLTAGE CRITERIA FOR LVH [MEETS CRITERIA IN ONE OF: R(aVL), S(V1), R(V5), R(V5/V6)+S(V1)] NONSPECIFIC T-WAVE ABNORMALITY BORDERLINE ECG COMPARED TO ECG 05/29/2022 11:04:03 T-WAVE ABNORMALITY NOW PRESENT Electronically Signed On 12-07-2022 17:26:40 CDT by Mao Marina M.D.
[2022-12-07 16:12] LABS: Glucose Point of Care 212 mg/dl (65-105)
[2022-12-07 16:50] LABS: Basophils Absolute Auto 0.1 K/mm3 (0.0-0.1); Basophils Percent Auto 0.8 % (0.2-1.2); Eosinophils Absolute Auto 0.1 K/mm3 (0-0.3); Eosinophils Percent Auto 1.1 % (0-4.4); Hematocrit 45.1 % (37.0-47.0); Immature Granulocyte Absolute 0.03 K/mm3 (0.00-0.031); Immature Granulocyte Percent A 0.2 % (0-0.5); Lymphocytes Absolute Auto 1.93 K/mm3 (0.9-3.2); Lymphocytes Percent Auto 15.8 % (18.3-44.2); Mean Corpuscular HGB Conc 33.3 g/dl (32-36); Mean Corpuscular Hemoglobin 31.1 pg (26-34); Mean Corpuscular Volume 93.6 fl (80-100); Mean Platelet Volume 11.3 fl (7.4-10.4); Monocytes Absolute Auto 0.7 K/mm3 (0.1-0.6); Monocytes Percent Auto 6.1 % (2.6-8.5); Neutrophils Absolute Auto 9.3 K/mm3 (1.3-6.7); Platelet Count Result 280 k/mm3 (150-375); Red Blood Count 4.82 M/mm3 (4.2-5.4); Red Cell Distribution Width 13.1 % (11.5-14.5); White Blood Count 12.2 K/mm3 (4.5-10.0)
[2022-12-07 17:02] LABS: INR 0.9; Prothrombin Time 12.9 Seconds (11.1-14.7)
[2022-12-07 17:04] LABS: Alanine Aminotransferase 25 U/L (6-35); Albumin Level 4.7 g/dL (3.5-5.1); Alkaline Phosphatase 167 U/L (38-126); Anion Gap 13 mmol/L (8-16); Aspartate Amino Transferase 31 U/L (14-36); Bilirubin,Total 0.7 mg/dL (0.2-1.3); Blood Urea Nitrogen 19 mg/dL (7-17); Calcium 9.9 mg/dL (8.4-10.2); Carbon Dioxide 25 mmol/L (22-30); Chloride 102 mmol/L (98-107); Estimated CRCL calculation 40 ml/min; Estimated Glomerular Filt Rate 54; Glucose 261 mg/dL (65-110); Potassium 3.9 mmol/L (3.4-5.0); Sodium 140 mmol/L (137-145)
[2022-12-07 17:11] LABS: Partial Thromboplastin Time 24.7 SECONDS (22.3-36.8)
[2022-12-07 17:24] LABS: Appearance Urine Cloudy (Clear); Bacteria Urine 4+ /hpf; Bilirubin Urine Negative (Negative); Color Urine Yellow (Yellow); Glucose Urine UA 2+ mg/dL (Negative); Ketones Urine Trace mg/dL (Negative); Leukocyte Esterase Ur 2+ LEU/UL (Negative); Nitrate Urine Negative (Negative); Protein Urine 2+ mg/dL (Negative); Specific Grav Ur 1.019 (1.001-1.035); Squamous Epithelial Cell Urine None seen /hpf (Few); Urobilinogen Urine 0.2 mg/dL (<2.0); WBC Urine >100 /hpf; pH Urine 5.5 (5.0-9.0)
[2022-12-07 17:34] LABS: Add Urine Microscopic? YES
[2022-12-07] MEDS: hydrALAZINE HCL 20 MG/ML VIAL 10 MG IV PUSH (18:09)
--- NOTE | 2022-12-07 18:12 | ED.AMS ---
HPI - Altered Mental Status General Chief Complaint: Altered Mental Status Stated Complaint: AMS x 2 days, N/V Time Seen by Provider: 12/07/22 16:27 History of Present Illness HPI narrative: Patient is a 77-year-old female who presents ER with increased confusion. Ongoing for 2 days. Patient oriented to self and place but does not know the year. Has difficulty giving history as to why she is here. No dysarthria or facial droop. No reports of pain. No evidence of trauma. Related Data Home Medications Medication Instructions Recorded Confirmed aspirin 81 mg tablet,delayed 81 mg PO DAILY 12/23/18 07/27/22 release (Adult Low Dose Aspirin) atorvastatin 20 mg tablet 40 mg PO HS 12/23/18 07/27/22 blood sugar diagnostic (Contour #10 ea 12/23/18 07/27/22 Test Strips) calcium carbonate-vitamin D3 500 1 tablet PO DAILY 12/23/18 07/27/22 mg(1,250 mg)-600 unit chewable tablet losartan 100 mg tablet 100 mg PO DAILY 12/23/18 07/27/22 omeprazole 40 mg capsule,delayed 20 mg PO DAILY 12/23/18 07/27/22 release metoprolol succinate 50 mg 100 mg PO DAILY 03/08/20 07/27/22 tablet,extended release 24 hr pregabalin 50 mg capsule (Lyrica) 75 mg PO BID 03/24/20 07/27/22 amlodipine 5 mg tablet 5 mg PO DAILY 12/07/21 07/27/22 bimatoprost 0.01 % eye drops 1 drp EACH EYE HS 12/07/21 07/27/22 (Shabana) chlorthalidone 25 mg tablet 25 mg PO DAILY 12/07/21 07/27/22 venlafaxine 150 mg 150 mg PO DAILY 12/07/21 07/27/22 capsule,extended release 24 hr ferrous sulfate 325 mg (65 mg 325 mg PO DAILY 05/29/22 07/27/22 iron) tablet (iron) Allergies Allergy/AdvReac Type Severity Reaction Status Date / Time No Known Allergies Allergy Verified 09/18/22 13:34 Review of Systems Review of Systems: ROS unobtainable: Yes unobtainable due to mental status PMFSH Past Medical History Medical History (Updated 12/07/22 @ 20:35 by rAik Rodriguez MD) Anemia Anxiety Anxiety disorder, unspecified Atherosclerotic heart disease Body mass index (BMI) greater than 30 (11/16/16) Breast cancer Chronic bilateral low back pain with left-sided sciatica Chronic right shoulder pain Colon cancer screening Coronary artery disease Depression Essential hypertension GERD without esophagitis Glaucoma Hyperlipidemia Hypertension Intermittent vomiting Leg pain Lumbar disc disease Malignant neoplasm Other chronic pain Other specified depressive episodes Rosacea Scalp pruritus 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 Surgical History Surgical History H/O arthroscopic knee surgery H/O lumpectomy H/O tubal ligation History of cataract extraction History of coronary artery stent placement x3 2017 History of total knee arthroplasty Previous back surgery 05/2022, on lower back Status post lumbar microdiscectomy Family History Family History Mother Diabetes mellitus Family history of cardiovascular disease Depression Father Suicide Sibling COPD (chronic obstructive pulmonary disease) Family history of cardiovascular disease Heart disease Depression COPD exacerbation Social History Social History Social History: the patient is and has 2 children. She occasionally uses marijuana. She is a former smoker. Patient is retired. Code status full code Smoking packs per day: 1 Smoking cigarettes per day: 20.0 Years smoked: 3 Smoking pack-years: 3.00 Smoking status: Former smoker Tobacco type: cigarettes Second hand tobacco smoke exposure: No Alcohol intake: current Alcohol use details: socially Substance use: never Substance use type: does not use Last use: 02/25/22 Lack of Transportation: No Lack of Food: Never True Current Housing: I
--- NOTE | 2022-12-07 20:03 | PM.IMHP ---
H&P: HPI History of Present Illness Date/Time: 12/07/22 20:03 Chief Complaint: ALTERED MENTAL STATUS Narrative: THIS IS A 77-YEAR-OLD FEMALE WITH PAST MEDICAL HISTORY SIGNIFICANT FOR HYPERTENSION, TYPE DIABETES MELLITUS, CHRONIC BACK PAIN, LUMBAR RADICULOPATHY. PATIENT WAS BROUGHT TO THE EMERGENCY ROOM DUE TO CONFUSION FOR THE LAST 2 DAYS OR SO. AT THE TIME OF MY VISIT PATIENT WAS ABLE TO TELL ME HER NAME AND PLACE HOWEVER WAS UNABLE TO TIME WHILE SHE IS IN THE HOSPITAL WAS NOT ABLE TO GIVE ANY HISTORY. PRELIMINARY WORKUP WAS SIGNIFICANT FOR URINALYSIS WAS NUMEROUS WBCS PRESENT. EXAMINATION: CT brain wo con DATE: 12/07/2022 16:24 INDICATION: Aphasia TECHNIQUE: Computed tomography (CT) of the head was performed without intravenous contrast. The mA was adjusted according to patient size. Iterative reconstruction technique was employed. Exam dose:? 605.33 mGy-cm total exam DLP.? COMPARISON: None FINDINGS: There are bilateral carotid siphon internal carotid artery calcifications.? There is nonspecific diminished attenuation of the cerebral white matter, likely due to chronic small vessel ischemic changes. There is subacute or chronic lacunar infarct of the right thalamus. There are chronic lacunar infarcts of the right basal ganglia. No intracranial mass lesion or hemorrhage or recent cerebrovascular accident is noted otherwise. No midline shift or mass effect effect. No subdural or epidural hematoma is detected. No fracture or bone destruction of the cranial vault. Included paranasal sinuses and mastoid air cells are normally developed and aerated. IMPRESSION:? Cerebral atherosclerosis and chronic small vessel ischemic changes of cerebral white matter Subacute or chronic right thalamic lacunar infarct Chronic right basal ganglia lacunar infarcts PATIENT HAS BEEN ADMITTED FOR FURTHER EVALUATION MANAGEMENT AND TREATMENT Review of Systems Review of Systems: ROS unobtainable: Yes unobtainable due to mental status (CONFUSION, DELIRIUM) [facility] Past Medical History Medical History (Updated 12/07/22 @ 20:35 by Arik Rodriguez MD) Anemia Anxiety Anxiety disorder, unspecified Atherosclerotic heart disease Body mass index (BMI) greater than 30 (11/16/16) Breast cancer Chronic bilateral low back pain with left-sided sciatica Chronic right shoulder pain Colon cancer screening Coronary artery disease Depression Essential hypertension GERD without esophagitis Glaucoma Hyperlipidemia Hypertension Intermittent vomiting Leg pain Lumbar disc disease Malignant neoplasm Other chronic pain Other specified depressive episodes Rosacea Scalp pruritus 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 Surgical History Surgical History H/O arthroscopic knee surgery H/O lumpectomy H/O tubal ligation History of cataract extraction History of coronary artery stent placement x3 2017 History of total knee arthroplasty Previous back surgery 05/2022, on lower back Status post lumbar microdiscectomy Family History Family History Mother Diabetes mellitus Family history of cardiovascular disease Depression Father Suicide Sibling COPD (chronic obstructive pulmonary disease) Family history of cardiovascular disease Heart disease Depression COPD exacerbation Social History Social History Social History: the patient is and has 2 children. She occasionally uses marijuana. She is a former smoker. Patient is retired. Code status full code Smoking packs per day: 1 Smoking cigarettes per day: 20.0 Years smoked: 3 Smoking pack-years: 3.00 Smoking status: Former smoker Second hand tobacco smoke exposure: No Alcohol intake: never Alcohol use details: soci
--- NOTE | 2022-12-07 22:31 | ADMGEN ---
This patient, Kiki Ragsdale, was admitted to Medical Room 246-. Patient/family oriented to hospital policies and general routines including ID bracelet, bed and alarms, visiting hours, pain management, procedures, bathroom and other care routines, personal items, smoking policy, room service/diet, and visiting hours. Information on how to activate the Rapid Response Team has been discussed. Patient/Family are encouraged to report perceived risks to care and to ask questions if they do not understand what they are told or what they should do.
[2022-12-08] VITALS (12 sets, daily range): BP systolic 149–187; BP diastolic 76–87; PULSE 64–107; RESP 12–20; TEMP 36.4–36.6; O2SAT 94–98
[2022-12-08] MEDS: hydrALAZINE HCL 20 MG/ML VIAL 10 MG IV PUSH (00:44)
--- NOTE | 2022-12-08 08:07 | P.PNIM_ITS ---
Progress Note: A&P Assessment and Plan (1) Acute UTI: Code(s): N39.0 - Urinary tract infection, site not specified Status: Acute Assessment and Plan: 12/07/22: * ADMIT TO REGULAR MEDICAL FLOOR * STARTED ON ROCEPHIN * CULTURES IN PROGRESS * SUPPORTIVE CARE 12/08/22: * UA positive for 2+ protein, 2+ glucose, trace ketones, 2+ leukocytes, Urine WBC >100, Urine RBC 3-5, 4+ bacteria * UC was obtained and is pending results * Continue Rocephin IV (2) Altered mental status: Code(s): R41.82 - Altered mental status, unspecified Status: Acute Assessment and Plan: 12/07/22: * LIKELY SECONDARY TO 1. * CT HEAD REVIEWED * SUPPORTIVE CARE 12/08/22: * CT of the head revealed cerebral atherosclerosis and chronic small-vessel ischemic changes of cerebral white matter, subacute or chronic right thalamic lacunar infarcts, chronic right basal ganglia lacunar infarcts * MRI of the brain and brainstem with and without contrast revealed no acute intracranial process or abnormally enhancing brain lesions, small old lacunar infarcts at the right caudate nucleus, moderate scattered periventricular white matter T2 hyperintensity consistent with chronic small-vessel ischemic disease * patient is alert oriented x 4, no facial droop, no speech impairment, strength 5/5 all 4 extremities, EOMs intact, pupils round and reactive to light inner equal, cranial nerves intact. She denies any headache, lightheadedness, vision changes. 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: Qualifiers: Diabetes mellitus [facility] insulin use: without [facility] use Qualified Code(s): E11.21 - Type 2 diabetes mellitus with diabetic nephropathy Code(s): E11.21 - Type 2 diabetes mellitus with diabetic nephropathy Status: Chronic Assessment and Plan: 12/07/22: * CONTINUE INSULIN GLARGINE * CONTINUE INSULIN ASPART * ACCU-CHEKS AC AND HS 12/08/22: * BG ranging 212-261 * Continue with Lantus and SSI * Accu checks AC/HS (4) Essential (primary) hypertension: Code(s): I10 - Essential (primary) hypertension Status: Chronic Assessment and Plan: 12/08/22: * B/P ranging 169/87-187/84 * Continue Norvasc, Cozaar, and Metoprolol Succinate ER (5) GERD without esophagitis: Code(s): K21.9 - Gastro-esophageal reflux disease without esophagitis Status: Chronic Assessment and Plan: 12/08/22: * continue Protonix 40 mg daily (6) Hyperlipidemia: Code(s): E78.5 - Hyperlipidemia, unspecified Status: Chronic Assessment and Plan: 12/08/22: * Continue Atorvastatin and ASA 81 mg daily (7) Coronary artery disease: Qualifiers: Coronary Disease-Associated Artery/Lesion type: unspecified vessel or lesion type [place] vs. transplanted heart: [place] heart Code(s): I25.10 - Atherosclerotic heart disease of [place] coronary artery without angina pectoris Status: Chronic Assessment and Plan: 12/07/22: * CONTINUE LOSARTAN * CONTINUE METOPROLOL * CONTINUE ATORVASTATIN * CONTINUE ASPIRIN 12/08/22: * no change to current treatment plan (8) Lumbosacral radiculopathy: Code(s): M54.17 - Radiculopathy, lumbosacral region Status: Acute Assessment and Plan: 12/07/22: * SUPPORTIVE CARE * TYLENOL NEEDED 12/08/22: * no change to current treatment plan Time Spent With Patient Time with patient: Greater than 35 minutes Sub
--- NOTE | 2022-12-08 08:07 | PM.IMPN ---
Progress Note: A&P Assessment and Plan (1) Acute UTI: Code(s): N39.0 - Urinary tract infection, site not specified Status: Acute Assessment and Plan: 12/07/22: ADMIT TO REGULAR MEDICAL FLOOR STARTED ON ROCEPHIN CULTURES IN PROGRESS SUPPORTIVE CARE 12/08/22: UA positive for 2+ protein, 2+ glucose, trace ketones, 2+ leukocytes, Urine WBC >100, Urine RBC 3-5, 4+ bacteria UC was obtained and is pending results Continue Rocephin IV (2) Altered mental status: Code(s): R41.82 - Altered mental status, unspecified Status: Acute Assessment and Plan: 12/07/22: LIKELY SECONDARY TO 1. CT HEAD REVIEWED SUPPORTIVE CARE 12/08/22: CT of the head revealed cerebral atherosclerosis and chronic small-vessel ischemic changes of cerebral white matter, subacute or chronic right thalamic lacunar infarcts, chronic right basal ganglia lacunar infarcts MRI of the brain and brainstem with and without contrast revealed no acute intracranial process or abnormally enhancing brain lesions, small old lacunar infarcts at the right caudate nucleus, moderate scattered periventricular white matter T2 hyperintensity consistent with chronic small-vessel ischemic disease patient is alert oriented x 4, no facial droop, no speech impairment, strength 5/5 all 4 extremities, EOMs intact, pupils round and reactive to light inner equal, cranial nerves intact. She denies any headache, lightheadedness, vision changes. 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: Qualifiers: Diabetes mellitus [place] insulin use: without [place] use Qualified Code(s): E11.21 - Type 2 diabetes mellitus with diabetic nephropathy Code(s): E11.21 - Type 2 diabetes mellitus with diabetic nephropathy Status: Chronic Assessment and Plan: 12/07/22: CONTINUE INSULIN GLARGINE CONTINUE INSULIN ASPART ACCU-CHEKS AC AND HS 12/08/22: BG ranging 212-261 Continue with Lantus and SSI Accu checks AC/HS (4) Essential (primary) hypertension: Code(s): I10 - Essential (primary) hypertension Status: Chronic Assessment and Plan: 12/08/22: B/P ranging 169/87-187/84 Continue Norvasc, Cozaar, and Metoprolol Succinate ER (5) GERD without esophagitis: Code(s): K21.9 - Gastro-esophageal reflux disease without esophagitis Status: Chronic Assessment and Plan: 12/08/22: continue Protonix 40 mg daily (6) Hyperlipidemia: Code(s): E78.5 - Hyperlipidemia, unspecified Status: Chronic Assessment and Plan: 12/08/22: Continue Atorvastatin and ASA 81 mg daily (7) Coronary artery disease: Qualifiers: Coronary Disease-Associated Artery/Lesion type: unspecified vessel or lesion type [place] vs. transplanted heart: [place] heart Code(s): I25.10 - Atherosclerotic heart disease of [place] coronary artery without angina pectoris Status: Chronic Assessment and Plan: 12/07/22: CONTINUE LOSARTAN CONTINUE METOPROLOL CONTINUE ATORVASTATIN CONTINUE ASPIRIN 12/08/22: no change to current treatment plan (8) Lumbosacral radiculopathy: Code(s): M54.17 - Radiculopathy, lumbosacral region Status: Acute Assessment and Plan: 12/07/22: SUPPORTIVE CARE TYLENOL NEEDED 12/08/22: no change to current treatment plan Time Spent With Patient Time with patient: Greater than 35 minutes Subjective Date/time seen: 12/08/22 08:07 Interval history: 12/08/22: This is a 77 year old female who presented to the ER with increased confusion for past 2 days. Work up in the ER included a head CT with shown chronic small vessel ischemic changes of the cerebral white matter, cerebral atherosclerosis, subacute or chronic right thalamic lacunar infarct, and chronic right basal ganglia lacunar infarcts. She also had an MRI of the brain / brain stem with and without contrast which did not show
[2022-12-08] MEDS: ASPIRIN 81 MG ENTERIC TABLET PO (08:52)
[2022-12-08] MEDS: PREGABALIN (*CRX) 75 MG CAPSULE PO ×2 (08:53→20:17)
[2022-12-08] MEDS: CHLORTHALIDONE 25 MG TABLET PO (08:53)
[2022-12-08] MEDS: LOSARTAN POTASSIUM 100 MG TABLET PO (08:53)
[2022-12-08] MEDS: amLODIPine BESYLATE 5 MG TABLET PO (08:53)
[2022-12-08] MEDS: FERROUS SULFATE 325 MG TABLET DR BY MOUTH (08:53)
[2022-12-08] MEDS: VENLAFAXINE HCL XR 75 MG CAP.ER.24H 150 MG PO (09:01)
[2022-12-08] MEDS: METOPROLOL SUCCINATE EXT REL 50 MG TABCR 100 MG PO (09:02)
[2022-12-08] MEDS: PANTOPRAZOLE 40 MG TABLET PO (09:02)
[2022-12-08 12:08] LABS: Glucose Point of Care 295 mg/dl (65-105)
[2022-12-08] MEDS: INSULIN GLARGINE (*BKC) 100 UNITS/ML 40 UNITS SUB-Q (12:17)
[2022-12-08] MEDS: INSULIN ASPART (*BKC) 100 UNITS/ML SUB-Q ×3 (12:17→17:49)
[2022-12-08 17:04] LABS: Glucose Point of Care 252 mg/dl (65-105)
[2022-12-08] MEDS: ATORVASTATIN 40 MG TABLET PO (20:17)
[2022-12-08] MEDS: LATANOPROST 0.005% OP SOLN 2.5 ML BTL 1 DROP EACH EYE (20:18)
[2022-12-08 20:27] LABS: Glucose Point of Care 292 mg/dl (65-105)
[2022-12-09] VITALS (12 sets, daily range): BP systolic 111–175; BP diastolic 55–90; PULSE 75–87; RESP 16–17; TEMP 36.3–36.5; O2SAT 94–97
[2022-12-09 05:48] LABS: Basophils Absolute Auto 0.1 K/mm3 (0.0-0.1); Basophils Percent Auto 0.8 % (0.2-1.2); Eosinophils Absolute Auto 0.3 K/mm3 (0-0.3); Eosinophils Percent Auto 3.4 % (0-4.4); Hematocrit 43.9 % (37.0-47.0); Hemoglobin 13.9 g/dL (12.0-15.0); Immature Granulocyte Absolute 0.04 K/mm3 (0.00-0.031); Immature Granulocyte Percent A 0.4 % (0-0.5); Lymphocytes Absolute Auto 1.87 K/mm3 (0.9-3.2); Lymphocytes Percent Auto 19.3 % (18.3-44.2); Mean Corpuscular HGB Conc 31.7 g/dl (32-36); Mean Corpuscular Hemoglobin 30.9 pg (26-34); Mean Corpuscular Volume 97.6 fl (80-100); Mean Platelet Volume 10.7 fl (7.4-10.4); Monocytes Absolute Auto 0.8 K/mm3 (0.1-0.6); Neutrophils Absolute Auto 6.6 K/mm3 (1.3-6.7); Neutrophils Percent Auto 68.1 % (45.5-73.1); Platelet Count Result 233 k/mm3 (150-375); Red Cell Distribution Width 13.7 % (11.5-14.5); White Blood Count 9.7 K/mm3 (4.5-10.0)
[2022-12-09 06:09] LABS: Alanine Aminotransferase 21 U/L (6-35); Albumin Level 3.9 g/dL (3.5-5.1); Alkaline Phosphatase 130 U/L (38-126); Anion Gap 11 mmol/L (8-16); Aspartate Amino Transferase 23 U/L (14-36); Bilirubin,Total 0.6 mg/dL (0.2-1.3); Blood Urea Nitrogen 32 mg/dL (7-17); Calcium 8.8 mg/dL (8.4-10.2); Carbon Dioxide 25 mmol/L (22-30); Chloride 101 mmol/L (98-107); Estimated CRCL calculation 28 ml/min; Estimated Glomerular Filt Rate 37; Glucose 214 mg/dL (65-110); Potassium 3.5 mmol/L (3.4-5.0); Sodium 137 mmol/L (137-145)
--- NOTE | 2022-12-09 07:06 | P.PNIM_ITS ---
Progress Note: A&P Assessment and Plan (1) Acute UTI: Code(s): N39.0 - Urinary tract infection, site not specified Status: Acute Assessment and Plan: 12/07/22: * ADMIT TO REGULAR MEDICAL FLOOR * STARTED ON ROCEPHIN * CULTURES IN PROGRESS * SUPPORTIVE CARE 12/08/22: * UA positive for 2+ protein, 2+ glucose, trace ketones, 2+ leukocytes, Urine WBC >100, Urine RBC 3-5, 4+ bacteria * UC was obtained and is pending results * Continue Rocephin IV 12/09/22: * urine culture results still pending * continue with Rocephin IV (2) Altered mental status: Code(s): R41.82 - Altered mental status, unspecified Status: Acute Assessment and Plan: 12/07/22: * LIKELY SECONDARY TO 1. * CT HEAD REVIEWED * SUPPORTIVE CARE 12/08/22: * CT of the head revealed cerebral atherosclerosis and chronic small-vessel ischemic changes of cerebral white matter, subacute or chronic right thalamic lacunar infarcts, chronic right basal ganglia lacunar infarcts * MRI of the brain and brainstem with and without contrast revealed no acute intracranial process or abnormally enhancing brain lesions, small old lacunar infarcts at the right caudate nucleus, moderate scattered periventricular white matter T2 hyperintensity consistent with chronic small-vessel ischemic disease * patient is alert oriented x 4, no facial droop, no speech impairment, strength 5/5 all 4 extremities, EOMs intact, pupils round and reactive to light inner equal, cranial nerves intact. She denies any headache, lightheadedness, vision changes. 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 will add high-dose sliding scale insulin today * continue with Lantus and mealtime dosage * continue with Accu-Cheks AC and HS (4) Essential (primary) hypertension: Code(s): I10 - Essential (primary) hypertension Status: Chronic Assessment and Plan: 12/08/22: * B/P ranging 169/87-187/84 * Continue Norvasc, Cozaar, and Metoprolol Succinate ER 12/09/22: * no change to current treatment plan * blood pressure ranging 144/67 to 175/90 (5) GERD without esophagitis: Code(s): K21.9 - Gastro-esophageal reflux disease without esophagitis Status: Chronic Assessment and Plan: 12/08/22: * continue Protonix 40 mg daily 12/09/22: * no change to current treatment plan (6) Hyperlipidemia: Code(s): E78.5 - Hyperlipidemia, unspecified Status: Chronic Assessment and Plan: 12/08/22: * Continue Atorvastatin and ASA 81 mg daily 12/09/22: * no change to current treatment plan. (7) Coronary artery disease: Qualifiers: Coronary Disease-Associated Artery/Lesion type: unspecified vessel or lesion type [place] vs. transplanted heart: [place] heart Code(s):
--- NOTE | 2022-12-09 07:06 | PM.IMPN ---
Progress Note: A&P Assessment and Plan (1) Acute UTI: Code(s): N39.0 - Urinary tract infection, site not specified Status: Acute Assessment and Plan: 12/07/22: ADMIT TO REGULAR MEDICAL FLOOR STARTED ON ROCEPHIN CULTURES IN PROGRESS SUPPORTIVE CARE 12/08/22: UA positive for 2+ protein, 2+ glucose, trace ketones, 2+ leukocytes, Urine WBC >100, Urine RBC 3-5, 4+ bacteria UC was obtained and is pending results Continue Rocephin IV 12/09/22: urine culture results still pending continue with Rocephin IV (2) Altered mental status: Code(s): R41.82 - Altered mental status, unspecified Status: Acute Assessment and Plan: 12/07/22: LIKELY SECONDARY TO 1. CT HEAD REVIEWED SUPPORTIVE CARE 12/08/22: CT of the head revealed cerebral atherosclerosis and chronic small-vessel ischemic changes of cerebral white matter, subacute or chronic right thalamic lacunar infarcts, chronic right basal ganglia lacunar infarcts MRI of the brain and brainstem with and without contrast revealed no acute intracranial process or abnormally enhancing brain lesions, small old lacunar infarcts at the right caudate nucleus, moderate scattered periventricular white matter T2 hyperintensity consistent with chronic small-vessel ischemic disease patient is alert oriented x 4, no facial droop, no speech impairment, strength 5/5 all 4 extremities, EOMs intact, pupils round and reactive to light inner equal, cranial nerves intact. She denies any headache, lightheadedness, vision changes. 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 will add high-dose sliding scale insulin today continue with Lantus and mealtime dosage continue with Accu-Cheks AC and HS (4) Essential (primary) hypertension: Code(s): I10 - Essential (primary) hypertension Status: Chronic Assessment and Plan: 12/08/22: B/P ranging 169/87-187/84 Continue Norvasc, Cozaar, and Metoprolol Succinate ER 12/09/22: no change to current treatment plan blood pressure ranging 144/67 to 175/90 (5) GERD without esophagitis: Code(s): K21.9 - Gastro-esophageal reflux disease without esophagitis Status: Chronic Assessment and Plan: 12/08/22: continue Protonix 40 mg daily 12/09/22: no change to current treatment plan (6) Hyperlipidemia: Code(s): E78.5 - Hyperlipidemia, unspecified Status: Chronic Assessment and Plan: 12/08/22: Continue Atorvastatin and ASA 81 mg daily 12/09/22: no change to current treatment plan. (7) Coronary artery disease: Qualifiers: Coronary Disease-Associated Artery/Lesion type: unspecified vessel or lesion type [place] vs. transplanted heart: [place] heart Code(s): I25.10 - Atherosclerotic heart disease of [place] coronary artery without angina pectoris Status: Chronic Assessment and Plan: 12/07/22: CONTINUE LOSARTAN CONTINUE METOPROLOL CONTINUE ATORVASTATIN CONTINUE ASPIRIN 12/08/22: no change to current treatment plan (8) Lumbosacral radiculopathy: Code(s): M54.17 - Radiculopathy, lumbosacral region Status: Acute Assessment and Plan: 12/07/22: SUPPORTIVE CARE TYLENOL NEEDED 12/08/22:
[2022-12-09] MEDS: PREGABALIN (*CRX) 75 MG CAPSULE PO ×2 (08:16→20:31)
[2022-12-09] MEDS: ASPIRIN 81 MG ENTERIC TABLET PO (08:16)
[2022-12-09] MEDS: CHLORTHALIDONE 25 MG TABLET PO (08:16)
[2022-12-09] MEDS: VENLAFAXINE HCL XR 75 MG CAP.ER.24H 150 MG PO (08:17)
[2022-12-09] MEDS: amLODIPine BESYLATE 5 MG TABLET PO (08:17)
[2022-12-09] MEDS: METOPROLOL SUCCINATE EXT REL 50 MG TABCR 100 MG PO (08:17)
[2022-12-09] MEDS: FERROUS SULFATE 325 MG TABLET DR BY MOUTH (08:17)
[2022-12-09] MEDS: LOSARTAN POTASSIUM 100 MG TABLET PO (08:18)
[2022-12-09] MEDS: ENOXAPARIN 30 MG/0.3 ML SYRINGE SUB-Q (08:18)
[2022-12-09] MEDS: PANTOPRAZOLE 40 MG TABLET PO (08:18)
[2022-12-09 08:33] LABS: Glucose Point of Care 273 mg/dl (65-105)
[2022-12-09] MEDS: INSULIN ASPART (*BKC) 100 UNITS/ML SUB-Q ×4 (08:57→17:32)
[2022-12-09] MEDS: INSULIN GLARGINE (*BKC) 100 UNITS/ML 40 UNITS SUB-Q (08:59)
[2022-12-09 12:13] LABS: Glucose Point of Care 365 mg/dl (65-105)
[2022-12-09 17:20] LABS: Glucose Point of Care 317 mg/dl (65-105)
[2022-12-09 20:32] LABS: Glucose Point of Care 191 mg/dl (65-105)
[2022-12-09] MEDS: ATORVASTATIN 40 MG TABLET PO (20:32)
[2022-12-09] MEDS: LATANOPROST 0.005% OP SOLN 2.5 ML BTL 1 DROP EACH EYE (20:32)
[2022-12-10] VITALS: PULSE 85
[2022-12-10 00:04] VITALS: PULSE 76
[2022-12-10 04:00] VITALS: PULSE 81; PULSE 85
[2022-12-10 04:20] VITALS: BP 149/66; PULSE 85; RESP 17; TEMP 36.5; O2SAT 96
[2022-12-10 05:28] LABS: Basophils Absolute Auto 0.1 K/mm3 (0.0-0.1); Basophils Percent Auto 0.5 % (0.2-1.2); Eosinophils Absolute Auto 0.3 K/mm3 (0-0.3); Eosinophils Percent Auto 3.3 % (0-4.4); Hematocrit 43.2 % (37.0-47.0); Hemoglobin 14.1 g/dL (12.0-15.0); Immature Granulocyte Absolute 0.03 K/mm3 (0.00-0.031); Immature Granulocyte Percent A 0.3 % (0-0.5); Lymphocytes Absolute Auto 1.14 K/mm3 (0.9-3.2); Lymphocytes Percent Auto 11.7 % (18.3-44.2); Mean Corpuscular HGB Conc 32.6 g/dl (32-36); Mean Corpuscular Hemoglobin 31.3 pg (26-34); Mean Corpuscular Volume 95.8 fl (80-100); Mean Platelet Volume 11.2 fl (7.4-10.4); Monocytes Absolute Auto 0.6 K/mm3 (0.1-0.6); Monocytes Percent Auto 6.1 % (2.6-8.5); Neutrophils Absolute Auto 7.6 K/mm3 (1.3-6.7); Neutrophils Percent Auto 78.1 % (45.5-73.1); Platelet Count Result 238 k/mm3 (150-375); Red Blood Count 4.51 M/mm3 (4.2-5.4); Red Cell Distribution Width 13.6 % (11.5-14.5); White Blood Count 9.8 K/mm3 (4.5-10.0)
[2022-12-10 05:47] LABS: Alanine Aminotransferase 21 U/L (6-35); Albumin Level 3.8 g/dL (3.5-5.1); Alkaline Phosphatase 126 U/L (38-126); Anion Gap 12 mmol/L (8-16); Aspartate Amino Transferase 24 U/L (14-36); Bilirubin,Total 0.6 mg/dL (0.2-1.3); Blood Urea Nitrogen 52 mg/dL (7-17); Calcium 8.3 mg/dL (8.4-10.2); Carbon Dioxide 21 mmol/L (22-30); Chloride 97 mmol/L (98-107); Estimated CRCL calculation 21 ml/min; Estimated Glomerular Filt Rate 26; Glucose 204 mg/dL (65-110); Potassium 3.8 mmol/L (3.4-5.0); Sodium 130 mmol/L (137-145)
[2022-12-10 08:00] VITALS: PULSE 92
[2022-12-10 08:31] LABS: Glucose Point of Care 223 mg/dl (65-105)
[2022-12-10] MEDS: VENLAFAXINE HCL XR 75 MG CAP.ER.24H 150 MG PO (08:42)
[2022-12-10] MEDS: PREGABALIN (*CRX) 75 MG CAPSULE PO (08:42)
[2022-12-10] MEDS: CEFDINIR 300 MG CAPSULE PO (08:42)
[2022-12-10] MEDS: METOPROLOL SUCCINATE EXT REL 50 MG TABCR 100 MG PO (08:42)
[2022-12-10] MEDS: PANTOPRAZOLE 40 MG TABLET PO (08:43)
[2022-12-10] MEDS: amLODIPine BESYLATE 5 MG TABLET PO (08:43)
[2022-12-10] MEDS: ASPIRIN 81 MG ENTERIC TABLET PO (08:43)
[2022-12-10] MEDS: FERROUS SULFATE 325 MG TABLET DR BY MOUTH (08:43)
[2022-12-10] MEDS: LOSARTAN POTASSIUM 100 MG TABLET PO (08:43)
[2022-12-10] MEDS: CHLORTHALIDONE 25 MG TABLET PO (08:43)
[2022-12-10] MEDS: INSULIN GLARGINE (*BKC) 100 UNITS/ML 40 UNITS SUB-Q (08:44)
[2022-12-10] MEDS: INSULIN ASPART (*BKC) 100 UNITS/ML SUB-Q ×4 (08:46→12:03)
[2022-12-10] MEDS: ENOXAPARIN 40 MG/0.4 ML SYRINGE SUB-Q (08:47)
[2022-12-10 12:00] VITALS: PULSE 72
[2022-12-10 12:09] LABS: Glucose Point of Care 299 mg/dl (65-105)
--- NOTE | 2022-12-10 14:12 | PM.DS ---
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: Qualifiers: Diabetes mellitus terminologist insulin use: without detention use Qualified Code(s): E11.21 - Type 2 diabetes mellitus with diabetic nephropathy Code(s): E11.21 - Type 2 diabetes mellitus with diabetic nephropathy Status: Chronic (4) Essential (primary) hypertension: Code(s): I10 - Essential (primary) hypertension Status: Chronic (5) GERD without esophagitis: Code(s): K21.9 - Gastro-esophageal reflux disease without esophagitis Status: Chronic (6) Hyperlipidemia: Code(s): E78.5 - Hyperlipidemia, unspecified Status: Chronic (7) Coronary artery disease: Qualifiers: Coronary Disease-Associated Artery/Lesion type: unspecified vessel or lesion type [place] vs. transplanted heart: [place] heart Code(s): I25.10 - Atherosclerotic heart disease of [place] coronary artery without angina pectoris Status: Chronic (8) Lumbosacral radiculopathy: Code(s): M54.17 - Radiculopathy, lumbosacral region Status: Acute DS: Summary Hospital Course Reason for hospitalization: Urinary tract infection Hospital Course: This is a 77 year old female who presented to the ER with increased confusion for past 2 days. Work up in the ER included a head CT with shown chronic small vessel ischemic changes of the cerebral white matter, cerebral atherosclerosis, subacute or chronic right thalamic lacunar infarct, and chronic right basal ganglia lacunar infarcts. She also had an MRI of the brain / brain stem with and without contrast which did not show any acute intracranial process or abnormality enhancing brain lesions, she did have a small old lacunar infarct at the right cudate nucleus, and moderate scattered periventricular white matter T2 hyperintensity consistent with chronic small-vessel ischemic disease.?On examination today patient is alert and oriented x4, VSS, she remains afebrile, she is currently on room air. She denies any new complaints or pain. Labs today revealed sodium level 130, potassium 3.8, chloride 97, bicarb 21, BUN 52, creatinine 1.9, blood sugars ranging 191-204, CBC unremarkable, liver enzymes normal. Urine culture positive for E coli on the final read with sensitivites. Patient stable to discharge. Discussed results of culture and discharge with the patient. She will go home on Cefdinir 300 mg BID for another 7 days. She will need to follow up with her PCP in 1 week. Patient agreeable to this plan of care. Status at Discharge Cognitive/behavioral status at discharge: Alert and oriented x4 Functional status at discharge: independent ambulation Overall status at discharge: patient is progressing back to baseline Time Spent with Patient Time attestation: Total time spent providing and/or coordinating discharge services: Time spent: Greater than 30 minutes Exam Narrative: GENERAL: Well-appearing, well-nourished, and in no acute distress. interactive HEAD: Normocephalic, atraumatic. EYES: PERRL and EOMI. ENT:? Mucous membranes moist. Neck: supple, no JVD, trachea midline CHEST: Lungs clear to auscultation bilaterally,?No adventitious lung sounds No respiratory distress. HEART: Regular rate and rhythm.? Normal peripheral pulses. no murmurs, gallops, friction rub ABDOMEN: Soft, nontender, nondistended. normoactive bowel sounds EXTREMITIES: Normal range of motion.? No edema. strength 5/5 in all 4 extremity SKIN: Warm, dry, no rash. NEURO:? Alert and oriented x4.? No
== END 2022-12-10 15:05 | disposition home or self-care (01) ==
LOC: ANHED 20:35 → ANH2MED 12-10 13:39
PROVIDERS: Chiropractor; Emergency Medicine; Nurse Practitioner Acute Care; Admitting Provider Internal Medicine; Emergency Provider Emergency Medicine; PCP Student in an Organized Health Care Education/Training Program; Visit Provider Student in an Organized Health Care Education/Training Program
DX: N39.0 Urinary tract infection, site not specified (principal); B96.20 Unspecified Escherichia coli [E. coli] as the cause of diseases classified elsewhere; R41.82 Altered mental status, unspecified; D64.9 Anemia, unspecified; F41.9 Anxiety disorder, unspecified; I25.10 Atherosclerotic heart disease of native coronary artery without angina pectoris; G89.29 Other chronic pain; M54.42 Lumbago with sciatica, left side; M54.17 Radiculopathy, lumbosacral region; M25.511 Pain in right shoulder; F32.A Depression, unspecified; R94.31 Abnormal electrocardiogram [ECG] [EKG]; I10 Essential (primary) hypertension; K21.9 Gastro-esophageal reflux disease without esophagitis; H40.9 Unspecified glaucoma; E78.5 Hyperlipidemia, unspecified; E11.21 Type 2 diabetes mellitus with diabetic nephropathy; E11.42 Type 2 diabetes mellitus with diabetic polyneuropathy; Z87.891 Personal history of nicotine dependence; F10.90 Alcohol use, unspecified, uncomplicated; F12.90 Cannabis use, unspecified, uncomplicated; Z79.4 Long term (current) use of insulin; Z79.82 Long term (current) use of aspirin; Z79.84 Long term (current) use of oral hypoglycemic drugs; Z79.899 Other long term (current) drug therapy
CPT/HCPCS: 36415; 70450; 70553; 80053; 81001; 82948; 85025; 85610; 85730; 87077; 87086; 87186; 93005; 96372; 96374; 96375; 96376; 97110; 97116; 97161; 97165; 99285; A9270; A9577; G0378; J0360; J0696; J1650; J1815

== ENCOUNTER 2022-12-25 08:28 | Emergency (ER) | payer OTHER, SELFPAY ==
[2022-12-25 08:37] VITALS: BP 176/68; PULSE 58; RESP 18; TEMP 36.5; O2SAT 96
--- NOTE | 2022-12-25 09:50 | ED.GENADULT ---
HPI - General Adult General Chief complaint: Urogenital-Female Stated complaint: vre infection Time Seen by Provider: 12/25/22 09:21 History of Present Illness HPI narrative: Kiki Ragsdale is a 77 y/o female who presents today with reports of being called by her PCP 3 days ago and was told to come to the ED after her urinalysis from a week ago resulted with VRE and she needs to be admitted for IV antibiotics. Patient reports she has not had any symptoms of an infection, so she did not come in right away. She reports she was admitted about 3 weeks ago for a UTI and d/c home. She denies dysuria/ frequency/urgency/abdominal pain/ flank pain/ fever/chills. Related Data Home Medications Medication Instructions Recorded Confirmed aspirin 81 mg tablet,delayed 81 mg PO DAILY 12/23/18 12/18/22 release (Adult Low Dose Aspirin) atorvastatin 20 mg tablet 40 mg PO HS 12/23/18 12/18/22 blood sugar diagnostic (Contour #10 ea 12/23/18 12/18/22 Test Strips) losartan 100 mg tablet 100 mg PO DAILY 12/23/18 12/18/22 omeprazole 40 mg capsule,delayed 20 mg PO DAILY 12/23/18 12/18/22 release metoprolol succinate 50 mg 100 mg PO DAILY 03/08/20 12/18/22 tablet,extended release 24 hr pregabalin 50 mg capsule (Lyrica) 75 mg PO BID 03/24/20 12/18/22 bimatoprost 0.01 % eye drops 1 drp EACH EYE HS 12/07/21 12/18/22 (Lumigan) chlorthalidone 25 mg tablet 25 mg PO DAILY 12/07/21 12/18/22 venlafaxine 150 mg 150 mg PO DAILY 12/07/21 12/18/22 capsule,extended release 24 hr ferrous sulfate 325 mg (65 mg 325 mg PO DAILY 05/29/22 12/18/22 iron) tablet (iron) Allergies Allergy/AdvReac Type Severity Reaction Status Date / Time No Known Allergies Allergy Verified 12/25/22 08:45 Review of Systems Review of Systems: CONSTITUTIONAL: Denies fever, chills, or sweats. EYES: Denies visual changes, redness, or discharge. ENT: Denies rhinorrhea, congestion, sore throat, or otalgia. CARDIOVASCULAR: Denies chest pain, palpitations, or edema. RESPIRATORY: Denies cough or dyspnea. GASTROINTESTINAL: Denies abdominal pain, nausea, vomiting, or diarrhea. GENITOURINARY: Denies dysuria or hematuria. SKIN: Denies rash or itching. MUSCULOSKELETAL: Denies back pain, joint pain, or myalgia. NEUROLOGIC: Denies headache, numbness, dizziness, or weakness. 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 Surgical History Surgical History H/O arthroscopic knee surgery H/O lumpectomy H/O tubal ligation History of cataract extraction History of coronary artery stent placement x3 2017 History of total knee arthroplasty Previous back surgery 05/2022, on lower back Status post lumbar microdiscectomy Family History Family History Mother Diabetes mellitus Family history of cardiovascular disease Depression Father Suicide Sibling COPD (chronic obstructive pulmonary disease) Family history of cardiovascular disease Heart disease Depression COPD exacerbation Social History Social History Social History: the patient is and has 2 children. She occasionally uses [employer]
[2022-12-25 10:03] LABS: Appearance Urine Clear (Clear); Bilirubin Urine Negative (Negative); Blood Urine Negative (Negative); Color Urine Yellow (Yellow); Glucose Urine UA 1+ mg/dL (Negative); Ketones Urine Negative (Negative); Leukocyte Esterase Ur Negative LEU/UL (Negative); Nitrate Urine Negative (Negative); Protein Urine Negative (Negative); Specific Grav Ur 1.016 (1.001-1.035); Urobilinogen Urine 0.2 mg/dL (<2.0); pH Urine 5.5 (5.0-9.0)
[2022-12-25 10:19] LABS: Basophils Absolute Auto 0.1 K/mm3 (0.0-0.1); Eosinophils Absolute Auto 0.2 K/mm3 (0-0.3); Eosinophils Percent Auto 2.7 % (0-4.4); Hematocrit 37.7 % (37.0-47.0); Hemoglobin 12.1 g/dL (12.0-15.0); Immature Granulocyte Absolute 0.02 K/mm3 (0.00-0.031); Immature Granulocyte Percent A 0.3 % (0-0.5); Lymphocytes Absolute Auto 1.27 K/mm3 (0.9-3.2); Lymphocytes Percent Auto 18.1 % (18.3-44.2); Mean Corpuscular HGB Conc 32.1 g/dl (32-36); Mean Corpuscular Hemoglobin 31.1 pg (26-34); Mean Corpuscular Volume 96.9 fl (80-100); Mean Platelet Volume 11.1 fl (7.4-10.4); Monocytes Absolute Auto 0.5 K/mm3 (0.1-0.6); Monocytes Percent Auto 6.6 % (2.6-8.5); Neutrophils Percent Auto 71.3 % (45.5-73.1); Platelet Count Result 201 k/mm3 (150-375); Red Blood Count 3.89 M/mm3 (4.2-5.4); Red Cell Distribution Width 13.1 % (11.5-14.5)
[2022-12-25 10:27] LABS: Add Urine Microscopic? NO
[2022-12-25 10:30] LABS: Alanine Aminotransferase 17 U/L (6-35); Albumin Level 3.9 g/dL (3.5-5.1); Alkaline Phosphatase 106 U/L (38-126); Anion Gap 4 mmol/L (8-16); Aspartate Amino Transferase 19 U/L (14-36); Bilirubin,Total 0.5 mg/dL (0.2-1.3); Blood Urea Nitrogen 27 mg/dL (7-17); Calcium 8.9 mg/dL (8.4-10.2); Carbon Dioxide 29 mmol/L (22-30); Chloride 105 mmol/L (98-107); Estimated CRCL calculation 32 ml/min; Estimated Glomerular Filt Rate 40; Glucose 126 mg/dL (65-110); Potassium 4.3 mmol/L (3.4-5.0); Sodium 138 mmol/L (137-145)
[2022-12-25 10:31] LABS: Lactic Acid Reflex 0.9 mmol/L (0.7-2.0)
== END 2022-12-25 11:40 | disposition home or self-care (01) ==
PROVIDERS: Emergency Provider Nurse Practitioner Family; PCP Student in an Organized Health Care Education/Training Program
DX: R82.71 Bacteriuria (principal); I10 Essential (primary) hypertension; I25.10 Atherosclerotic heart disease of native coronary artery without angina pectoris; E78.5 Hyperlipidemia, unspecified; E11.39 Type 2 diabetes mellitus with other diabetic ophthalmic complication; H42 Glaucoma in diseases classified elsewhere; E11.42 Type 2 diabetes mellitus with diabetic polyneuropathy; K21.9 Gastro-esophageal reflux disease without esophagitis; F41.9 Anxiety disorder, unspecified; F32.A Depression, unspecified; Z96.659 Presence of unspecified artificial knee joint; Z95.5 Presence of coronary angioplasty implant and graft; Z87.440 Personal history of urinary (tract) infections; Z86.2 Personal history of diseases of the blood and blood-forming organs and certain disorders involving the immune mechanism; Z85.3 Personal history of malignant neoplasm of breast; Z87.891 Personal history of nicotine dependence; Z98.49 Cataract extraction status, unspecified eye; Z79.82 Long term (current) use of aspirin; Z79.4 Long term (current) use of insulin
CPT/HCPCS: 36415; 80053; 81003; 83605; 85025; 87040; 99283

== ENCOUNTER 2023-02-16 07:41 | Outpatient (CLI) | payer OTHER, SELFPAY ==
--- NOTE | ~2023-02-16 | CT_ITS ---
EXAMINATION: CT lumbar spine wo con DATE: 02/16/2023 08:02 INDICATION: Lumbar radiculopathy. TECHNIQUE: Computed tomography (CT) of the lumbar spine was performed without intravenous contrast. A utomated exposure control and iterative reconstruction technique were employed. The dose-length produ ct was 969.37 mGy-cm. COMPARISON: CT lumbar spine 02/27/22, MRI 02/28/2022 FINDINGS: There is calcified atherosclerosis of the aorta and many of the other arteries. There is 9 degrees levocurvature of lumbar spine. There is 3 mm retrolisthesis of L1 on L2 and L2 on L3. Vertebr al body heights are normal. There is severely decreased disc height at T11-T12, moderately decreased disc height at T12-L1 and L1-L2, severely decreased disc height from L2-L3 through L5-S1. The followi ng disc levels are specifically discussed: L1-L2: The disc is bulging. There is moderate bilateral facet joint osteoarthritis. There is moderate bilateral neural foraminal stenosis. There is mild central canal stenosis. L2-L3: The disc is bulging. There is severe bilateral facet joint osteoarthritis. There is moderate b ilateral neural foraminal stenosis. There is mild central canal stenosis. L3-L4: The disc is bulging. There is severe bilateral facet joint osteoarthritis. There is moderate b ilateral neural foraminal stenosis. There is mild central canal stenosis. There are changes of construction grip ior decompression. L4-L5: The disc is bulging. There is moderate right and severe left facet joint osteoarthritis. There is moderate bilateral neural foraminal stenosis. There is mild central canal stenosis. There are trupti nges of posterior decompression. L5-S1: The disc is bulging. There is severe bilateral facet joint osteoarthritis. There is moderate b ilateral neural foraminal stenosis. There is mild central canal stenosis. There are changes of construction grip ior decompression. IMPRESSION: 1. Severe lumbar spondylosis. 2. Lumbar levoscoliosis. Reviewed, dictated and finalized at location A. [employer]
== END 2023-02-16 07:42 | disposition home or self-care (01) ==
PROVIDERS: PCP Student in an Organized Health Care Education/Training Program; Visit Provider Anesthesiology
DX: M47.26 Other spondylosis with radiculopathy, lumbar region (principal)
CPT/HCPCS: 72131

== ENCOUNTER 2023-08-08 14:08 | Outpatient (CLI) | payer OTHER, SELFPAY ==
--- NOTE | ~2023-08-08 | US_ITS ---
EXAMINATION: US carotid duplex BI DATE: 08/08/2023 15:24 INDICATION: Bilateral carotid artery stenosis TECHNIQUE: Grayscale, color Doppler, and pulsed Doppler images of the cervical carotid arteries were obtained. The degree of vessel stenosis is placed in one of the following categories: normal, <50%, 5 0-69%, >=70% but less than near-occlusion, near-occlusion, or total occlusion. Note that percent sten osis relative to normal distal artery lumen diameter is indirectly measured from velocity measurement s as described by Clayton, et al. Radiology 2003; [id number]:[id number]. COMPARISON: None. FINDINGS: RIGHT: The right common carotid artery (CCA) peak systolic velocity (PSV) is 52 cm/s with high resistance wa veform. The right internal carotid artery (ICA) is occluded with no discernible vascular flow in the mid to distal right ICA. The external carotid artery (ECA) PSV is 79 cm/s. There is antegrade flow in the right vertebral artery. LEFT: The left CCA PSV is 103 cm/s. The left ICA PSV is 296 cm/s. The left ICA EDV is 82 cm/s. The left ICA /CCA PSV ratio is 2.9. Grayscale and color Doppler images yield an estimate of >=70% (but less than n ear occlusion) diameter reduction from plaque in the ICA. The ECA PSV is 116 cm/s. There is antegrade flow in the left vertebral artery. IMPRESSION: 1. Complete occlusion of the right internal carotid artery. 2. >=70% (but less than near occlusion) stenosis in the left internal carotid artery. Reviewed, dictated and finalized at location A. IMPRESSION: 1. Complete occlusion of the right internal carotid artery. 2. >=70% (but less than near occlusion) stenosis in the left internal carotid a rtery.
== END 2023-08-08 14:09 | disposition home or self-care (01) ==
LOC: ANHIMG 14:15
PROVIDERS: PCP Student in an Organized Health Care Education/Training Program; Visit Provider Physician Assistant
DX: I65.23 Occlusion and stenosis of bilateral carotid arteries (principal)
CPT/HCPCS: 93880

== ENCOUNTER 2024-04-29 12:26 | Outpatient (CLI) | payer OTHER, SELFPAY ==
--- NOTE | ~2024-04-29 | MR_ITS ---
EXAMINATION: MR lumbar spine wo con DATE: 04/29/2024 12:55 INDICATION: Lumbago. TECHNIQUE: Magnetic resonance imaging (MRI) of the lumbar spine was performed without intravenous con trast. Sequences included sagittal T2-weighted FSE, sagittal T2-weighted FS FSE, sagittal T1-weighted FSE, and axial T2-weighted FSE. COMPARISON: Lumbar spine MRI 02/28/2022 FINDINGS: There is 15 degrees levoscoliosis of lumbar spine. There is 3 mm retrolisthesis of L1 on L2 , L2 on L3, and L3 on L4. There is mild chronic anterior wedging of T11 vertebral body. There is mild ly decreased disc height at L1-L2 and severely decreased disc height from L2-L3 through L5-S1. The di stal spinal cord signal intensity is normal. The conus medullaris is at L2. Again seen is moderate at rophy of left kidney. The following disc levels are specifically discussed: L1-L2: The disc is bulging and has an annular fissure. There is moderate bilateral facet joint osteoa rthritis. There is moderate bilateral neural foraminal stenosis. There is mild central canal stenosis . L2-L3: The disc is bulging and has an annular fissure. There is severe bilateral facet joint osteoart hritis. There is severe right and moderate left neural foraminal stenosis. There is mild central sundeep l stenosis. There is severe stenosis of right lateral recess. L3-L4: The disc is bulging. There is severe bilateral facet joint osteoarthritis. There is moderate r ight and mild left neural foraminal stenosis. There is mild central canal stenosis. L4-L5: The disc is bulging and has an annular fissure. There is moderate right and severe left facet joint osteoarthritis. There is moderate bilateral neural foraminal stenosis. There is mild central ca nal stenosis. L5-S1: The disc is bulging with superimposed right central extrusion. There is moderate right and sev ere left facet joint osteoarthritis. There is moderate bilateral neural foraminal stenosis. There is mild central canal stenosis. IMPRESSION: 1. Severe lumbar spondylosis, worsened from 02/28/2022. 2. Lumbar levoscoliosis. Reviewed, dictated and finalized at location B.
== END 2024-04-29 12:27 | disposition home or self-care (01) ==
LOC: MICIMG 12:27
PROVIDERS: PCP Student in an Organized Health Care Education/Training Program; Visit Provider Nurse Practitioner Family
DX: M47.896 Other spondylosis, lumbar region (principal)
CPT/HCPCS: 72148

== ENCOUNTER 2024-10-15 13:28 | Outpatient (CLI) | payer OTHER, SELFPAY ==
--- NOTE | ~2024-10-15 | MM_ITS ---
EXAMINATION: screening [facility] BI w griselda INDICATION: Asymptomatic, referred for screening mammogram. History of Left lumpectomy with radiation therapy. COMPARISON: 11/09/2021 through 05/04/2017 TECHNIQUE: Full field digital CC, MLO views were obtained of Both breasts with computer-aided detection to assist in interpretation of the study. FINDINGS: There are scattered areas of fibroglandular density. Posttreatment changes in Left breast are stable. No new focal dominant mass, architectural distortion, or suspicious microcalcifications are identified. Benign-appearing calcifications scattered in both breasts. Biopsy clip in the left breast. There are no features to suggest malignancy. IMPRESSION: Stable benign mammogram. No evidence of malignancy in the breast. BI-RADS 2, BENIGN Reviewed, dictated and finalized at location B.
== END 2024-10-15 13:29 | disposition home or self-care (01) ==
LOC: MICIMG 13:28
PROVIDERS: PCP Student in an Organized Health Care Education/Training Program; Visit Provider Student in an Organized Health Care Education/Training Program
DX: Z12.31 Encounter for screening mammogram for malignant neoplasm of breast (principal)
CPT/HCPCS: 77063; 77067